=== PATIENT | female | born 1980 | race Caucasian/White ===

== ENCOUNTER 2023-03-09 21:53 | Outpatient (REF) | payer OTHER, BC, SELFPAY ==
[2023-03-14 11:08] LABS: Age Gdln ACOG Testing Note (.); HPV Aptima Negative (Negative); IGP, Aptima HPV, rfx 16/18,45 Note (.)
== END 2023-03-09 21:54 | disposition home or self-care (01) ==
LOC: LAB 21:53
PROVIDERS: PCP Obstetrics & Gynecology; Visit Provider Obstetrics & Gynecology
DX: Z12.4 Encounter for screening for malignant neoplasm of cervix (principal); Z11.51 Encounter for screening for human papillomavirus (HPV)
CPT/HCPCS: 87624; G0145

== ENCOUNTER 2023-03-11 11:08 | Outpatient (OUT) | payer OTHER, BC, SELFPAY ==
--- NOTE | 2023-03-11 11:39 | MM_ITS ---
Patient: KAMERON ANDRADE Exam Date: 03/11/2023 : 1980 Gender:F Ordering : DR Scotty Hidalgo . Admission #: [id number] Family : Order #: [id number] CLICK HERE TO VIEW EXAM RADIOLOGY REPORT PROCEDURE: MM TOMOSYNTHESIS SCREENING BI COMPARISON: MG MAMM NICKIE DIAG W CAD, 11/16/2018. MG MAMM NICKIE DIAG W CAD, 11/20/2019. INDICATIONS: Well woman exam - screening mammogram Z01.419 Calculator Name NCI Breast Cancer Risk Assessment Tool 5 Year Breast Cancer Risk 0.50% Lifetime Breast Cancer Risk 9.00% Personal Breast Cancer No Personal Ovarian Cancer No Treatments None Family Cancers None LOCATION: [facility] BREAST COMPOSITION: Extremely dense, which lowers the sensitivity of mammography. FINDINGS: DIAGNOSTIC CATEGORY 2--BENIGN FINDING. NO CHANGE FROM COMPARISON. Scattered benign-appearing nodules are present. Scattered benign-appearing calcifications are present. Scattered benign-appearing lymph nodes are present. RIGHT BREAST: No significant suspicious finding. LEFT BREAST: No significant suspicious finding. RECOMMENDATIONS: ROUTINE MAMMOGRAM AND CLINICAL EVALUATION IN 12 MONTHS. PLEASE NOTE: A NORMAL MAMMOGRAM DOES NOT EXCLUDE THE POSSIBILITY OF BREAST CANCER. A CLINICALLY SUSPICIOUS PALPABLE LUMP SHOULD BE BIOPSIED. Dictated by: Eric Dinero MD on 03/18/2023 at 07:18 Approved by: Eric Dinero MD on 03/18/2023 at 07:19
[2023-03-11 12:32] LABS: Estimated Average Glucose 97 mg/dL
[2023-03-11 13:11] LABS: Free T4 0.92 ng/dL (0.76-1.46)
[2023-03-11 13:32] LABS: Free T3 2.34 pg/mL (2.18-3.98); Glucose 93 mg/dL (74-106); Thyroid Stimulating Hormone 0.996 uIU/mL (0.358-3.740)
[2023-03-12 04:07] LABS: Estradiol 71.3 pg/mL (.); Sex Horm Binding Glob, Serum 84.1 nmol/L (24.6-122.0); Thyroid Peroxidase (TPO) Ab <9 IU/mL (0-34)
[2023-03-12 11:08] LABS: C-Peptide, Serum 1.5 ng/mL (1.1-4.4); Insulin 4.1 uIU/mL (2.6-24.9)
[2023-03-14 16:09] LABS: Thyroglobulin Antibody <1.0 IU/mL (0.0-0.9)
[2023-03-14 17:10] LABS: Estrone, Serum 35 pg/mL (27-231)
[2023-03-14 18:07] LABS: Reverse T3, Serum 12.4 ng/dL (9.2-24.1)
[2023-03-16 00:07] LABS: Free Testosterone(Direct) 0.3 pg/mL (0.0-4.2); Testosterone 10 ng/dL (8-60)
[2023-03-16 11:28] LABS: Serotonin, Serum 9 ng/mL (31-207)
[2023-03-18 21:07] LABS: Thyroglobulin (TG-RIA) 5.7 ng/mL (.)
[2023-04-07 09:09] LABS: Cortisol, Free Dialysis, LCMS 0.756 ug/dL (.)
== END 2023-03-11 11:09 | disposition home or self-care (01) ==
PROVIDERS: PCP Obstetrics & Gynecology; Visit Provider Obstetrics & Gynecology
DX: Z12.31 Encounter for screening mammogram for malignant neoplasm of breast (principal); Z12.4 Encounter for screening for malignant neoplasm of cervix; E34.9 Endocrine disorder, unspecified
CPT/HCPCS: 36415; 77063; 77067; 82306; 82530; 82627; 82670; 82679; 82728; 82947; 83036; 83525; 84144; 84260; 84270; 84402; 84403; 84432; 84436; 84439; 84443; 84481; 84482; 84681; 86376; 86800

== ENCOUNTER 2023-08-13 16:21 | Emergency (ER) | payer OTHER, BC, SELFPAY ==
[2023-08-13 16:24] VITALS: BP 149/95; PULSE 97; RESP 18; TEMP 36.7; O2SAT 100; BMI 29.2
--- NOTE | 2023-08-13 16:36 | NUTR.NU ---
Pt reprts chronic low back pain but this pain became severe on Tue. Pt trying to control pain with home meds but this not helping. Ambulation is slow ad steady, no bruising or redness observed. Pt has a OTC med patch over site of pain. Pt denies injury or blood in urine.
--- NOTE | 2023-08-13 16:39 | CT_ITS ---
The [address] [address] Patient Name: KAMERON ANDRADE MRN: [id number] date: 1980 Sex: F Assigned Patient Location: ER Current Patient Location: ER Accession/Order Number: [id number] Exam Date: 08/13/2023 17:30 Report Date: 08/13/2023 18:09 At the request of: DUNCAN LEIVA Procedure: CT abdomen pelvis wo con EXAM: CT abdomen pelvis wo con HISTORY: Low back pain COMPARISON: None. TECHNIQUE: Axial CT imaging was performed through the abdomen and pelvis without intravenous contrast. Multiplanar reformats were performed. Dose reduction techniques were achieved by using automated exposure control and/or adjustment of mA and/or kV according to patient size and/or use of iterative reconstruction technique. FINDINGS: Lung bases: Lung bases are clear. No pleural effusion. GI upper: Unremarkable. Liver: Normal size and contour. Gallbladder: No significant abnormality. No cholelithiasis. Biliary system: No intra or extrahepatic biliary ductal dilatation. Spleen: Normal size. Pancreas: Unremarkable. Adrenal glands: Normal adrenal glands. Kidneys/ureters: Normal contours. No hydronephrosis. No nephrolithiasis or ureterolithiasis. Vessels: No aneurysm. Lymph Nodes: No lymphadenopathy. Small bowel: No wall thickening or dilatation. Colon: No wall thickening or dilatation. Moderate volume stool burden Appendix: No findings of appendicitis. Peritoneal cavity: No free fluid or pneumoperitoneum. Lower : Unremarkable. Bones: No acute bony abnormality. Soft tissues: No acute finding. Additional findings: None. CT/CT abdomen pelvis wo con IMPRESSION: Unremarkable noncontrast CT of the abdomen and pelvis. No acute abnormality. Constipation. Electronically authenticated by: MARCELO MENDIOLA Date: 08/13/2023 18:09
--- NOTE | 2023-08-13 16:40 | ED_ITS ---
HPI - Back Pain/Injury General Chief Complaint: Back Pain/Injury Stated Complaint: PAIN Time Seen by Provider: 08/13/23 16:24 Source: patient Mode of arrival: walk-in History of Present Illness HPI Narrative: Patient is a 42-year-old female who presents to the emergency department with her for evaluation of low back pain increasing over the last several days. She has a history of fibromyalgia and chronic low back pain but her h usband is concerned that this pain is different because it is more severe. She has an [id number] pain patch across her lumbar spine. She does not tolerate even light touch of the lumbar spine without guarding. She is able to ambulate. She denies any pain radiation to the lower extremities or peripheral paresthesias. No urinary symptoms. She has no fevers, chills, nausea, vomiting. She has had a previous hysterectomy. expresses concern that she has scar tissue from a hysterectomy and previous endometriosis. Pain is significantly worse with movement. She took NSAIDs and tizanidine prior to arrival without improvement. Related Data Home Medications Medication Instructions Recorded Confirmed cholecalciferol (vitamin D3) 10 10 mcg PO DAILY 08/13/23 08/13/23 mcg (400 unit) tablet (Vitamin D3) duloxetine 60 mg capsule,delayed 60 mg PO BID 08/13/23 08/13/23 release hydroxyzine HCl 25 mg tablet 25 mg PO DAILY 08/13/23 08/13/23 loratadine-pseudoephedrine ER 10 1 tab PO DAILY 08/13/23 08/13/23 mg-240 mg tablet,extended [id number] (Loratadine-D) metformin 500 mg tablet,extended 500 mg PO DAILY 08/13/23 08/13/23 release 24 hr methocarbamol 500 mg tablet 500 mg PO DAILY 08/13/23 08/13/23 nortriptyline 75 mg capsule 75 mg PO DAILY 08/13/23 08/13/23 tizanidine 4 mg tablet 4 mg PO DAILY 08/13/23 08/13/23 Previous Rx's Medication Instructions Recorded ketorolac 10 mg tablet 10 mg PO TID PRN pain #10 tabs 08/13/23 magnesium citrate 296 ml PO DAILY #296 mL 08/13/23 orphenadrine citrate 100 mg 100 mg PO BID PRN muscle pain #14 08/13/23 tablet,extended release tabs Allergies Allergy/AdvReac Type Severity Reaction Status Date / Time latex Allergy Severe Verified 08/13/23 16:28 Review of Systems ROS Constitutional Denies: fever or chills Ears, nose, mouth, and throat Denies: throat pain Cardiovascular Denies: chest pain Respiratory Denies: shortness of breath Gastrointestinal Denies: abdominal pain, nausea, vomiting or diarrhea Genitourinary Denies: painful urination Musculoskeletal Reports: back pain; Denies: neck pain, extremity pain or extremity swelling Integumentary/Breast Denies: rash PFSH PFS Medical History (Updated 08/13/23 @ 18:16 by RM Boss) Back pain ?M54.9 - Dorsalgia, unspecified (ICD-10) Endometriosis ?N80.9 - Endometriosis, unspecified (ICD-10) Fibromyalgia ?M79.7 - Fibromyalgia (ICD-10) Surgical History (Updated 08/13/23 @ 16:42 by Ninfa Davidson) H/O: hysterectomy ?Z90.710 - Acquired absence of both cervix and uterus (ICD-10) Exam Narrative Exam Narrative: Gen.: Awake, alert, in no distress, tearful Head: Normocephalic, atraumatic ENT: Moist mucous membranes Respiratory: No respiratory distress, lungs clear bilaterally Cardio: Regular rate and rhythm Gastrointestinal: Abdomen is soft, nondistended and nontender to palpation Back: Patient does not allow any touch of the lumbar spine, nontender to palpation in the C-spine and T-spine. No obvious deformity noted. No flank tenderness. [id number] pain patch noted across the lumbar spine. Extremities: Moves extremities equally, normal dorsiflexion and plantarflexion of the lower extremities with no decrease in sensation to the medial thighs. Normal hip flexion bilaterally. Able to ambulate. Psych: Tearful Neuro: No focal neuro deficit Skin: Warm, dry, intact Constitutional Vital Signs, click to edit/add: Last Vital Signs Temp 98.1 F 08/13/23 16:24 Pulse 77 08/13/23 17:40 Resp 18 08/13/23 16:24 BP 149/95 H 08/13/23 16:24 Pulse Ox 100 08/13/23 17:40 O2 Del Method Room Air 08/13/23 16:35 Course Vital Signs Vital signs: Vital Signs Temperature 98.1 F 08/13/23 16:24 Pulse Rate 97 H 08/13/23 16:24 Respiratory Rate 18 08/13/23 16:24 Blood Pressure 149/95 H 08/13/23 16:24 Pulse Oximetry 100 08/13/23 16:24 Oxygen Delivery Method Room Air 08/13/23 16:24 Temperature 98.1 F 08/13/23 16:24 Pulse Rate 77 08/13/23 17:40 Respiratory Rate 18 08/13/23 16:24 Blood Pressure 149/95 H 08/13/23 16:24 Pulse Oximetry 100 08/13/23 17:40 Oxygen Delivery Method Room Air 08/13/23 16:35 MDM - Back Pain/Injury MDM Narrative Medical decision making narrative: Patient was medicated with IV morphine, Norflex, Toradol, Zofran. She has an exam that is unremarkable with no radicular symptoms or focal neuro deficits. She has no complaints of abdominal pain. Lab studies, urine specimen are unremarkable. CT of the abdomen and pelvis was performed showing no evidence of acute abnormality although the patient is moderately constipated. She will be treated with Norflex, Toradol, magnesium citrate for home. Patient was reevaluated by attending physician prior to discharge. Follow-up with PCP and return to the ER if symptoms change or worsen. Medical Records Attestation: I reviewed the patient's medical records. Lab Data Attestation: I reviewed the patient's lab results. Labs: Lab Results 08/13/23 08/13/23 Range/Units 16:46 16:48 WBC 8.8 (4.0-11.0) 10^3/uL RBC 4.44 (4.20-5.40) 10^6/uL Hgb 13.0 (12.0-16.0) g/dL Hct 41.8 (36.0-48.0) % MCV 94.1 (81.0-99.0) fL MCH 29.3 (26.7-34.0) pg MCHC 31.1 (29.9-35.2) g/dL RDW 13.2 (11.0-15.0) % Plt Count 290 (150-450) 10^3/uL MPV 8.5 L (9.5-13.5) fL Neut % (Auto) 70.1 (43.0-75.0) % Lymph % (Auto) 18.4 L (20.5-60.0) % [place] % (Auto) 8.2 (1.7-12.0) % Eos % (Auto) 1.5 (0.9-7.0) % Baso % (Auto) 0.8 (0.2-2.0) % Neut # (Auto) 6.2 (1.4-6.5) 10^3/uL Lymph # (Auto) 1.6 (1.2-3.8) 10^3/uL [place] # (Auto) 0.7 (0.3-0.8) 10^3/uL Eos # (Auto) 0.1 (0.0-0.7) 10^3/uL Baso # (Auto) 0.1 (0.0-0.1) 10^3/uL Abs Immat Gran (auto) 0.09 H (0.00-0.03) 10^3/uL Imm/Tot Granulo (auto) 1.0 H (0.0-0.5) % Sodium 143 (136-145) mmol/L Potassium 3.8 (3.5-5.1) mmol/L Chloride 103 (98-107) mmol/L Carbon Dioxide 31.6 (21.0-32.0) mmol/L Anion Gap 12.2 BUN 17.0 (7.0-18.0) mg/dL Creatinine 0.99 (0.55-1.02) mg/dL Est GFR ( Amer) >60 (>=60) Est GFR (Non-Af Amer) >60 (>=60) BUN/Creatinine Ratio 17.2 Glucose 91 (74-106) mg/dL Calcium 8.6 (8.5-10.1) mg/dL Total Bilirubin 0.4 (0.2-1.0) mg/dL AST 18 (15-37) U/L ALT 40 (14-59) U/L Alkaline Phosphatase 66 (46-116) U/L Total Protein 7.0 (6.4-8.2) g/dL Albumin 4.1 (3.4-5.0) g/dL Globulin 2.9 g/dL Albumin/Globulin Ratio 1.4 Urine Color Yellow (YELLOW) Urine Clarity Clear (CLEAR) Urine pH 6.5 (5.0-9.0) Ur Specific [place] 1.025 (1.005-1.025) Urine Protein Negative (NEG/TRACE) mg/dL Urine Glucose (UA) Negative (NEGATIVE) mg/dL Urine Ketones Trace A (NEGATIVE) mg/dL Urine Occult Blood Negative (NEGATIVE) Urine Nitrite Negative (NEGATIVE) Urine Bilirubin Negative (NEGATIVE) Urine Urobilinogen 0.2 (0.2-1.0) EU/dL Ur Leukocyte Esterase Negative (NEGATIVE) Imaging Data CT scan - abdomen: Attestation: I have reviewed the pertinent imaging results. Radiologist's impression: Procedure: CT abdomen pelvis wo con EXAM: CT abdomen pelvis wo con HISTORY: Low back pain COMPARISON: None. TECHNIQUE: Axial CT imaging was performed through the abdomen and pelvis without intravenous contrast. Multiplanar reformats were performed. Dose reduction techniques were achieved by using automated exposure control and/or adjustment of mA and/or kV according to patient size and/or use of iterative reconstruction technique. FINDINGS: Lung bases: Lung bases are clear. No pleural effusion. GI upper: Unremarkable. Liver: Normal size and contour. Gallbladder: No significant abnormality. No cholelithiasis. Biliary system: No intra or extrahepatic biliary ductal dilatation. Spleen: Normal size. Pancreas: Unremarkable. Adrenal glands: Normal adrenal glands. Kidneys/ureters: Normal contours. No hydronephrosis. No nephrolithiasis or ureterolithiasis. Vessels: No aneurysm. Lymph Nodes: No lymphadenopathy. Small bowel: No wall thickening or dilatation. Colon: No wall thickening or dilatation. Moderate volume stool burden Appendix: No findings of appendicitis. Peritoneal cavity: No free fluid or pneumoperitoneum. Lower : Unremarkable. Bones: No acute bony abnormality. Soft tissues: No acute finding. Additional findings: None. IMPRESSION: Unremarkable noncontrast CT of the abdomen and pelvis. No acute abnormality. Constipation. Electronically authenticated by: MARCELO MENDIOLA Date: 08/13/2023 18:09 Discharge Plan Discharge Chief Complaint: Back Pain/Injury Clinical Impression: Low back pain, Constipation Patient Disposition: Home, Self-Care Time of Disposition Decision: 18:15 Condition: Good Prescriptions / Home Meds: New ketorolac 10 mg tablet 10 mg PO TID PRN (Reason: pain) Qty: 10 0RF orphenadrine citrate 100 mg tablet extended release 100 mg PO BID PRN (Reason: muscle pain) Qty: 14 0RF magnesium citrate Solution 296 ml PO DAILY Qty: 296 0RF Rx Instructions: Drink half the bottle with 12 oz of water, wait 30 min and drink the other half of the bottle with 12 oz of water No Action cholecalciferol (vitamin D3) [Vitamin D3] 10 mcg (400 unit) tablet 10 mcg PO DAILY duloxetine 60 mg capsule,delayed release(DR/EC) 60 mg PO BID hydroxyzine HCl 25 mg tablet 25 mg PO DAILY Loratadine-D 10-240 mg tablet extended release 24 hr 1 tab PO DAILY metformin 500 mg tablet extended release 24 hr 500 mg PO DAILY methocarbamol 500 mg tablet 500 mg PO DAILY nortriptyline 75 mg capsule 75 mg PO DAILY tizanidine 4 mg tablet 4 mg PO DAILY Instructions: Constipation (ED), Acute Low Back Pain (ED), Musculoskeletal Pain (ED) Stand Alone Forms: Portal Instructions Referrals: Physician,Non-Staff, MD [Primary Care Provider] - 1 week
[2023-08-13 16:55] LABS: Bilirubin Urine NEGATIVE (NEGATIVE); Blood Urine NEGATIVE (NEGATIVE); Clarity Urine CLEAR (CLEAR); Color Urine YELLOW (YELLOW); Glucose Urine UA NEGATIVE (NEGATIVE); Ketones Urine TRACE mg/dL (NEGATIVE); Leukocyte Esterase Urine NEGATIVE (NEGATIVE); Nitrite Urine NEGATIVE (NEGATIVE); Protein Urine NEGATIVE (NEG/TRACE); Specific Gravity Urine 1.025 (1.005-1.025); Urobilinogen Urine 0.2 EU/dL (0.2-1.0); pH Urine 6.5 (5.0-9.0)
[2023-08-13 16:56] LABS: Basophils Absolute Auto 0.1 10^3/uL (0.0-0.1); Basophils Percent Auto 0.8 % (0.2-2.0); Eosinophils Absolute Auto 0.1 10^3/uL (0.0-0.7); Eosinophils Percent Auto 1.5 % (0.9-7.0); Hematocrit 41.8 % (36.0-48.0); Immature Granulocytes Abs Auto 0.09 10^3/uL (0.00-0.03); Lymphocytes Absolute Auto 1.6 10^3/uL (1.2-3.8); Lymphocytes Percent Auto 18.4 % (20.5-60.0); Mean Corpuscular HGB Conc 31.1 g/dL (29.9-35.2); Mean Corpuscular Hemoglobin 29.3 pg (26.7-34.0); Mean Corpuscular Volume 94.1 fL (81.0-99.0); Mean Platelet Volume 8.5 fL (9.5-13.5); Monocytes Absolute Auto 0.7 10^3/uL (0.3-0.8); Monocytes Percent Auto 8.2 % (1.7-12.0); Neutrophils Absolute Auto 6.2 10^3/uL (1.4-6.5); Neutrophils Percent Auto 70.1 % (43.0-75.0); Platelet Count 290 10^3/uL (150-450); Red Blood Count 4.44 10^6/uL (4.20-5.40); Red Cell Distribution Width 13.2 % (11.0-15.0); White Blood Count 8.8 10^3/uL (4.0-11.0)
[2023-08-13 16:56] LABS: Urine Microscopic Indicated NO
[2023-08-13] MEDS: MORPHINE SULFATE 4 MG/ML VIAL IV (16:57)
[2023-08-13] MEDS: ONDANSETRON PF 4 MG/2 ML VIAL IV (16:57)
[2023-08-13] MEDS: KETOROLAC TROMETHAMINE 30 MG/ML VIAL IVP (16:58)
[2023-08-13] MEDS: ORPHENADRINE 60 MG/ 2 ML VIAL IV (16:58)
[2023-08-13 17:09] LABS: Alanine Aminotransferase 40 U/L (14-59); Albumin Globulin Ratio 1.4; Albumin Level 4.1 g/dL (3.4-5.0); Alkaline Phosphatase 66 U/L (46-116); Anion Gap 12.2; Aspartate Amino Transferase 18 U/L (15-37); BUN Creatinine Ratio 17.2; Bilirubin Total 0.4 mg/dL (0.2-1.0); Calcium 8.6 mg/dL (8.5-10.1); Carbon Dioxide 31.6 mmol/L (21.0-32.0); Chloride 103 mmol/L (98-107); Estimated GFR (African America >60 (>=60); Estimated GFR (Non-African Ame >60 (>=60); Globulin 2.9 g/dL; Glucose 91 mg/dL (74-106); Potassium 3.8 mmol/L (3.5-5.1); Sodium 143 mmol/L (136-145)
[2023-08-13 17:40] VITALS: PULSE 77; O2SAT 100
[2023-08-13 18:36] VITALS: PULSE 76; RESP 16; O2SAT 100
== END 2023-08-13 18:39 | disposition home or self-care (01) ==
PROVIDERS: Physician Assistant; Emergency Provider Emergency Medicine Emergency Medical Services
DX: K59.00 Constipation, unspecified (principal); M54.50 Low back pain, unspecified; Z90.710 Acquired absence of both cervix and uterus; Z79.899 Other long term (current) drug therapy; Z79.84 Long term (current) use of oral hypoglycemic drugs; M79.7 Fibromyalgia
CPT/HCPCS: 36415; 74176; 80053; 81003; 85025; 96374; 96375; 99285

== ENCOUNTER 2024-03-12 08:04 | Outpatient (OUT) | payer OTHER, BC, SELFPAY ==
--- OUTSIDE RECORDS SUMMARY | 2024-03-12 08:26 | XMS_ITS ---
Patient Summarization (C-CDA 2.1 CCD) Created on: March 12, 2024 KAMERON ANDRADE : 1980 Sex: Undifferentiated Author Organization Sample organization Care Team Providers Care Pelletising Extruder Operator Name Role Phone DUKE, DR HIRSCH Admitting Unavailable DUKE, DR HIRSCH Attending Unavailable MISC, DR SMART Primary Care Unavailable LINN, DR SCOTTIE Eldridge Consulting Unavailable DUKE, DR HIRSCH Consulting Unavailable DUKE, DR HIRSCH Admitting Unavailable DUKE, DR HIRSCH Attending Unavailable MISC, DR SMART Primary Care Unavailable DUKE, DR HIRSCH Consulting Unavailable ZIEBER, DR GISELE aB Consulting Unavailable DUKE, DR HIRSCH Admitting Unavailable DUKE, DR HIRSCH Attending Unavailable MISC, DR SMART Primary Care Unavailable DUKE, DR HIRSCH Consulting Unavailable Schlachter ADVERTISING ASSISTANT-BICYCLE INSPECTOR, Emir Primary Care Provide r BILLY AUGUSTE Attending Unavailable SCHLACHTER, EMIR Referring Unavailable SCHLACHTER, EMIR Primary Care Unavailable BILLY AUGUSTE Attending Unavailable SCHLACHTER, EMIR Referring Unavailable SCHLACHTER, EMIR Primary Care Unavailable BILLY AUGUSTE Attending Unavailable SCHLACHTER, EMIR Referring Unavailable SCHLACHTER, EMIR Primary Care Unavailable SCHLACHTER, EMIR Attending Unavailable SCHLACHTER, EMIR Referring Unavailable SCHLACHTER, EMIR Primary Care Unavailable SCHLACHTER, EMIR Attending Unavailable SCHLACHTER, EMIR Referring Unavailable SCHLACHTER, EMIR Primary Care Unavailable SCHLACHTER, EMIR Attending Unavailable SCHLACHTER, EMIR Referring Unavailable SCHLACHTER, EMIR Primary Care Unavailable Allergies Allergy Classification Reported Allergen(s) Allergy Type Date of Onset Reaction(s) Facility (1 source) Acetaminophen / dichloralphenazone / isometheptene Drug Allergy 02-20-20 13 [facility] (1 source) Cefaclor Drug Allergy 02-20-20 13 [facility] (1 source) Cetirizine Drug Allergy 02-20-20 13 [facility] (1 source) Ciprofloxacin Drug Allergy [facility] (1 source) Clarithromycin Drug Allergy 02-20-20 13 [facility] (3 sources) Latex; Translations: [LATEX] Drug allergy (disorder) 02-20-20 13 [facility] (1 source) Loratadine Drug Allergy 02-20-20 13 [facility] (6 sources) Citalopram; Translations: [CITALOPRAM] Drug Allergy 06-22-20 22 Rash [facility] Work Phone: (4 sources) Latex Propensity to adverse reactions to drug 07-04-20 17 Hives [facility] Encounters Encounter Date Encounter Type Care Provider Facility Start: 03-02-2024 End: 03-02-2024 ambulatory [facility] Start: 02-09-2024 End: 02-09-2024 ambulatory [facility] Start: 12-17-2023 End: 12-17-2023 ambulatory [facility] Work Phone: Start: 12-17-2023 End: 12-17-2023 Patient encounter procedure [facility] Work Phone: Start: 12-16-2023 End: 12-16-2023 Office outpatient visit 15 minutes Esmer ABDALLA Work Phone: [facility] Comment on above: Fibromyalgia Start: 11-17-2023 End: 11-17-2023 ambulatory [facility] Start: 10-28-2023 End: 10-28-2023 Patient encounter status Emir Duggan ADVERTISING ASSISTANT-BICYCLE INSPECTOR Work Phone: [facility] Work Phone: Start: 10-28-2023 End: 10-28-2023 Periodic preventive med est patient 40-64yrs Emir Avilaer ADVERTISING ASSISTANT-BICYCLE INSPECTOR Work Phone: [facility] Comment on above: Wellness examination (Primary Dx); Fibromyalgia; Degenerative disc disease, lumbar; Anxiety Start: 10-28-2023 End: 10-28-2023 ambulatory [facility] Start: 10-28-2023 Encounter for genera l adult medical examination without abnormal findings [facility] Start: 10-12-2023 End: 10-12-2023 ambulatory BILLY EDMONDSON [facility] Start: 10-03-2023 End: 10-03-2023 Office outpatient visit [facility] ADVERTISING ASSISTANT-BICYCLE INSPECTOR Work Phone: [facility] Comment on above: Acute non-recurrent maxillary sinusitis (Primary Dx) Start: 10-03-2023 End: 10-03-2023 ambulatory [facility] Start: 09-15-2023 Orders Only Scottie otto MD Work Phone: [facility] Start: 01-09-2022 End: 01-10-[address] TORREY WALL Facility:[facility] Start: 12-05-2021 End: 12-06-[address] TORREY WALL Facility:[facility] Start: 11-30-2021 End: 11-30-[address] TORREY WALL Facility:[facility] Immunizations Immunization Date Immunization Notes Care Provider [facility] 06-30-2022 Influenza, injectabl e, Madin Armour Canine Kidney, preservative free, quadrivalent Scottie Plata MD Work Phone: [facility] 06-30-2022 influenza virus vaccine, unspecified formulation Scottie Plata MD Work Phone: [facility] 09-03-2021 influenza, injectabl e, quadrivalent, preservative free Scottie Plata MD Work Phone: [facility] 01-05-2021 COVID-19, mRNA, LNP- S, PF, 100mcg/0.5mL Dose [facility] 06-21-2020 Influenza, injectabl e, Madin Armour Canine Kidney, preservative free, quadrivalent Scottie Plata MD [facility] 04-25-2020 measles, mumps and rubella virus vaccine Scottie Plata MD [facility] 04-11-2011 tetanus toxoid, redu ivonne diphtheria toxoid, and acellular pertussis vaccine, adsorbed Scottie Plata MD Work Phone: [facility] Medications Current Medications Medication Drug Class(es) Dates Sig (Normalized) Sig (Original) [id number] 200 actuat albuterol 0.09 mg/actuat metered dose inhaler (4 sources) beta2-Adrenergic Agonist Start: 02-22-2022 take 2 puff(s) by inhalation every six hours as needed for wheezing albuterol (PROVENTIL HFA;VENTOLIN HFA) 90 mcg/actuation inhaler Indications: Exercise-induced asthma Inhale 2 puffs every 6 (six) hours as needed for wheezing. 18 g 11 02/22/2022 Active amoxicillin 875 mg / clavulanate 125 mg oral tablet (1 source) Penicillin-class Antibacterial Start: 12-17-2023 take 1 tablet by mouth twice daily Amoxicillin-Pot Clavulanate Active 1 TAB PO Twice daily December 17, 2023 12:00am Calcium Carbonate / vitamin D3 (4 sources) calcium carbonate/vitami n D3 (CALCIUM 600 + D,3, ORAL) Take by mouth. 0 Active cefdinir 300 mg oral capsule (1 source) Cephalosporin Antibacterial Start: 10-03-2023 End: 10-13-2023 take 1 capsule by mouth in the morning, then take 1 capsule by mouth at bedtime cefDINIR (OMNICEF) 300 mg capsule Take 1 capsule (300 mg total) by mouth in the morning and 1 capsule (300 mg total) before bedtime. Do all this for 10 days. 20 capsule 0 10/03/2023 10/13/2023 Active cholecalciferol 0.01 mg oral tablet (4 sources) Vitamin D Start: 08-04-2023 take 1 tablet by mouth in the morning cholecalciferol, vitamin D3, 400 units tablet Indications: Fatigue, unspecified type Take 1 tablet (400 Units total) by mouth in the morning. 30 each 3 08/04/2023 Active DULoxetine 60 mg delayed release oral capsule (4 sources) Serotonin and Norepinephrine Reuptake Inhibitor Start: 01-21-2023 take 2 capsules by mouth in the morning DULoxetine (CYMBALTA) 60 mg capsule Indications: Generalized anxiety disorder Take 2 capsules (120 mg total) by mouth in the morning. 180 capsule 3 01/21/2023 Active hydrOXYzine hydrochloride 25 mg oral tablet (3 sources) Antihistamine Start: 11-17-2023 take 1 tablet by mouth three times daily as needed for anxiety hydrOXYzine (ATARAX) 25 mg tablet Indications: Generalized anxiety disorder Take 1 tablet (25 mg total) by mouth 3 (three) times a day as needed for anxiety. 90 tablet 3 11/17/2023 Active Start: 04-01-2023 End: 10-03-2023 take 1 tablet by mouth three times daily as needed for anxiety hydrOXYzine (ATARAX) 25 mg tablet Indications: Generalized anxiety disorder Take 1 tablet (25 mg total) by mouth 3 (three) times a day as needed for anxiety. 90 tablet 3 04/01/2023 10/03/2023 Discontinued 24 hr loratadine 10 mg / pseudoephedrine sulfate 240 mg extended release oral tablet (4 sources) alpha-Adrenergic Agonist Start: 05-10-2023 take 1 tablet by mouth every twenty-four hours in the morning loratadine-pseudoephedrine (LORATADINE-D) 10-240 mg per 24 hr tablet Indications: Seasonal allergies Take 1 tablet by mouth in the morning. 30 tablet 5 05/10/2023 Active meloxicam 15 mg oral tablet (5 sources) Nonsteroidal Anti-inflammatory Drug Start: 12-16-2023 take 1 tablet by mouth once daily meloxicam (MOBIC) 15 mg tablet Indications: Fibromyalgia Take one tablet by mouth once a day. 90 tablet 1 12/16/2023 Active Start: 03-18-2023 End: 12-16-2023 take 1 tablet by mouth once daily meloxicam (MOBIC) 7.5 mg tablet Indications: Fibromyalgia Take one tablet by mouth once a day. 90 tablet 0 03/18/2023 12/16/2023 Discontinued (Reorder) methocarbamol 750 mg oral tablet (5 sources) Muscle Relaxant Start: 12-16-2023 take 1 tablet by mouth in the evening methocarbamoL (ROBAXIN) 750 mg tablet Indications: Fibromyalgia Take one tablet by mouth at 8:00 pm 90 tablet 1 12/16/2023 Active Start: 06-17-2023 End: 12-16-2023 take 1 tablet by mouth once daily at bedtime methocarbamoL (ROBAXIN) 500 mg tablet Indications: Fibromyalgia Take 1 tablet (500 mg total) by mouth once daily at bedtime. 30 tablet 5 06/17/2023 12/16/2023 Discontinued (Reorder) methylPREDNISolone 4 mg oral tablet (1 source) Corticosteroid Start: 12-17-2023 take 1 tablet by mouth once Methylprednisolone (Medrol (Jakob)) 4 mg tablets,dose pack Active 0 PO per package directions December 17, 2023 12:00am PO PER PKG DIR for 6 days multivitamin-minerals- lutein (CENTRUM SILVER) tablet (4 sources) take 1 tablet by mouth in the morning multivitamin-minerals -lutein (CENTRUM SILVER) tablet Take 1 tablet by mouth in the morning. 0 Active nortriptyline 50 mg oral capsule (4 sources) Tricyclic Antidepressant Start: 09-05-2023 take 2 capsules by mouth once daily nortriptyline (PAMELOR) 50 mg capsule Indications: Generalized anxiety disorder , Insomnia due to medical condition Take 2 capsules (100 mg total) by mouth nightly. 180 capsule 1 09/05/2023 Active vitamin e 600 unt oral capsule (4 sources) take 1 capsule by mouth in the morning vitamin E 600 UNIT capsule Take 1 capsule (600 Units total) by mouth in the morning. 0 Active Completed/Discontinued Medications Medication Drug Class(es) Dates Sig (Normalized) Sig (Original) Lactobac no.41/Bifidobact no.7 (PROBIOTIC-10 ORAL) (2 sources) End: 10-03-2023 take 1 capsule by mouth in the morning Lactobac no.41/Bifidobact no.7 (PROBIOTIC-10 ORAL) Take 1 capsule by mouth in the morning. 0 10/03/2023 Discontinued take 1 capsule by mo ut in the morning Lactobac no.41/Bifidobact no.7 (PROBIOTI C-10 ORAL) Take 1 capsule by mouth in the morning. 0 Active ondansetron 4 mg oral tablet (2 sources) Serotonin-3 Receptor Antagonist Start: 09-15-2023 End: 10-03-2023 take 1 tablet by mouth every eight hours as needed for nausea and vomiting ondansetron (ZOFRAN) 4 mg tablet Take 1 tablet (4 mg total) by mouth every 8 (eight) hours as needed for nausea or vomiting. 20 tablet 0 09/15/2023 10/03/2023 Discontinued Payers Date Payer Category Payer Unknown [id number] 2020 Unknown [id number] 2020 Medicaid [employer] [employer] [id number] 2020-Present [phone] [place] [id number] 1982 Unknown [id number] 1980 Unknown [id number] 1982 Unknown [id number] 1982 Unknown [id number] 1982 Unknown [id number] 1980 Unknown [id number] 1982 Unknown [id number] 1982 Unknown [id number] 1982 Unknown [id number] 1959 Unknown [id number] 1959 Unknown [id number] Plan of Treatment Date Care Activity Detail Author Start: 03-11-2033 DTaP,Tdap and Td Vaccines (3 - Td or Tdap) DTaP,Tdap and Td Vaccines (3 - Td or Tdap) [facility] Start: 11-16-2024 Tobacco Screening Tobacco Screening [facility] Start: 11-02-2024 End: 11-02-2024 Patient encounter procedure 11/02/2024 8:30 AM EST Office Visit [facility] [address] [place] [phone] Emir Duggan, ADVERTISING ASSISTANT-BICYCLE INSPECTOR [address] [place] [address] [facility] Start: 10-28-2024 Adult BMI Follow Up Plan Adult BMI Follow Up Plan [facility] Start: 10-28-2024 Adult BMI Screening Adult BMI Screen ing [facility] Start: 10-28-2024 Tobacco Screening Tobacco Screening [facility] Start: 10-03-2024 Adult BMI Follow Up Plan Adult BMI Follow Up Plan [facility] Start: 09-05-2024 Tobacco Screening Tobacco Screening [facility] Start: 08-19-2024 Adult BMI Follow Up Plan Adult BMI Follow Up Plan [facility] Start: 08-19-2024 Adult BMI Screening Adult BMI Screen ing [facility] Start: 05-04-2024 End: 05-04-2024 Patient encounter procedure 05/04/2024 8:30 AM EDT Office Visit [facility] [address] [place] [phone] Emir Duggan, ADVERTISING ASSISTANT-BICYCLE INSPECTOR [address] [place] [address] [facility] Start: 03-12-2024 End: 10-27-2024 CBC W Auto Differential panel - Blood CBC auto differential Lab Routine Wellness examination Expected: 03/12/2024, Expires: 10/27/2024 [facility] Phone: Comment on above: Expected: 03/12/2024 , Expires: 10/27/2024 Start: 03-12-2024 End: 10-27-2024 Comprehensive metabolic 2000 panel - Serum or Plasma Comprehensive metabolic panel Lab Routine Wellness examination Expected: 03/12/2024, Expires: 10/27/2024 [facility] Comment on above: Expected: 03/12/2024 , Expires: 10/27/2024 Start: 03-12-2024 End: 10-27-2024 Lipid 1996 panel - Serum or Plasma Lipid profile Lab Routine Wellness examination Expected: 03/12/2024, Expires: 10/27/2024 [facility] Comment on above: Expected: 03/12/2024 , Expires: 10/27/2024 Start: 12-16-2023 End: 12-16-2023 Patient encounter procedure 12/16/2023 9:00 AM EDT Office Visit [facility] [address] [place] [phone] [place] [address] [place] [phone] [facility] Start: 11-08-2023 Depression Screening Depression Scre [facility] Start: 10-28-2023 End: 10-28-2023 Patient encounter procedure 10/28/2023 11:00 AM EST Office [facility] [address] [place] [address] Emir Duggan, ADVERTISING ASSISTANT-BICYCLE INSPECTOR [address], [place] [id number] [facility] Start: 09-27-2023 End: 09-27-2023 Patient encounter procedure 09/27/2023 8:45 AM EST Office Visit [facility] [address] [place] [phone] [place] [address] [place] [address] [address] [place] [phone] [facility] Start: 05-20-2023 COVID-19 Vaccine () COVID-19 Vaccine () [facility] Start: 05-20-2023 Influenza vaccination Influenza Vacc ine [facility] Problems Active Problems Problem Classification Problem Date Documented Date Episodic/Chronic Abdominal pain (4 sources) Pelvic and perineal pain; Translations: [PELVIC AND PERINEAL PAIN] Onset: 12-05-2021 Episodic Anxiety disorders (11 sources) Generalized anxiety disorder; Translations: [Generalized anxiety disorder] Onset: 06-22-2022 Resolved: 04-01-2023 06-22-2022 Chronic Attention-deficit, conduct, and disruptive behavior disorders (4 sources) Attention deficit hyperactivity disorder, predominantly inattentive type; Translations: [Attention-deficit hyperactivity disorder, predominantly inattentive type] Onset: 12-14-2022 12-14-2022 Chronic Attention-deficit, conduct, and disruptive behavior disorders (1 source) Attention-deficit hyperactivity disorder, predominantly inattentive type; Translations: [Attention-deficit hyperactivity disorder, predominantly inattentive type] Onset: 12-14-2022 Chronic Endometriosis (4 sources) Endometriosis (clinical); Translations: [Endometriosis, unspecified] 08-06-2020 Chronic Immunizations and screening for infectious disease (2 sources) Contact with and (suspected) exposure to infections with a predominantly sexual mode of transmission; Translations: [Encounter for screening for human papillomavirus (HPV)] Onset: 12-01-2021 Episodic Other connective tissue disease (6 sources) Fibromyalgia; Translations: [Fibromyalgia] Onset: 10-22-2022 10-22-2022 Episodic Other female genital disorders (1 source) Other specified noninflammatory disorders of vagina; Translations: [OTH SPEC NONINFLAMMATORY D/O VAGINA] Onset: 12-01-2021 Episodic Other screening for suspected conditions (not mental disorders or infectious disease) (4 sources) Encounter for screening for malignant neoplasm of cervix; Translations: [ENC SCREENING MALIG NEOPLASM CERV] Onset: 11-30-2021 Episodic Other skin disorders (1 source) Blister Onset: 03-02-2024 Episodic Otitis media and related conditions (5 sources) Acute left otitis media; Translations: [Otitis media, unspecified, left ear] Onset: 07-04-2017 07-04-2017 Episodic Ovarian cyst (4 sources) Unspecified ovarian cyst, left side; Translations: [UNSPECIFIED OVARIAN CYST LEFT SIDE] Onset: 01-09-2022 Episodic Spondylosis; intervertebral disc disorders; other back problems (6 sources) Degeneration of lumbar intervertebral disc; Translations: [Other intervertebral disc degeneration, lumbar region] Onset: 10-22-2022 10-22-2022 Chronic Superficial injury; contusion (1 source) Blister (nonthermal), unspecified foot, initial encounter; Translations: [Blister (nonthermal), unspecified foot, initial encounter] Onset: 03-02-2024 Episodic Unclassified (1 source) Annual Exam Onset: 10-28-2023 Past or Other Problems Problem Classification Problem Date Documented Da te Episodic/Chronic Mood disorders (4 sources) Mood disorders Onset: 11-08-2022 11-08-2022 Other connective tissue disease (1 source) Fibromyalgia; Translations: [Fibromyalgia] Onset: 10-22-2022 Episodic Other upper respiratory infections (4 sources) Acute maxillary sinusitis; Translations: [Acute maxillary sinusitis, unspecified] Onset: 10-03-2023 10-03-2023 Episodic Unclassified (4 sources) Onset: 08-19-2023 Resolved: 10-28-2023 08-19-2023 Procedures Date Procedure Procedure Detail Performing Clinician Start: 12-17-2023 Quick Strep (POC) Start: 11-08-2022 Adult depression screening assessment Scottie Plata MD Work Phone: Results Test Name Value Interpretation Reference Range Facility No Panel InformationOrdered By: Ludy Mena on 12-17-2023 Quick Strep (POC) [facility] US PELVIS AND TRANSVAGon US PELVIS AND TRANSVAG EXAMINATION: US PELVIS AND TRANSVAG HISTORY: Cyst of left ovary COMPARISON: 12/05/2021 FINDINGS: Transabdominal and transvaginal images The uterus is surgically absent. The right ovary measures 3. 1.7 x 3.6 cm. Scattered subcentimeter areas of anechoic echogenicity, normal follicles. Normal color Doppler flow. Normal resistive index of 0.4. The left ovary measures 4.0 x 3.0 4.4 cm. Decrease in size of a heterogeneous hypoechoic lesion now measuring 2.5 x 2.1 x 2.1 cm, centrally avascular. IMPRESSION: Decrease in size of a now 2.5 cm heterogeneous left ovarian lesion. I favor a complex cyst versus endometrioma. Consider follow-up in 2 months. Electronically authenticated by: SCOTTIE NGUYEN Date: 2022-01-11 17:35 Normal [facility] PAP ACOG PANEL 2: 30 to 65on 12-08-2021 . . Normal [facility] Comment on above: Result Comment: Perf ormed at: WB Performed By: #### [id number] #### [facility] [address] [place] [address] Dr. Ewa Mathews Age Gdln ACOG Testing 30-65 Normal [facility] Comment on above: Performed By: #### [id number] #### [facility] [address] [address] [address] Ewa Mathews DIAGNOSIS: Comment Normal [facility] Comment on above: Result Comment: NEGA TIVE FOR INTRAEPITHELIAL LESION OR MALIGNANCY. PREDOMINANCE OF COCCOBACILLI CONSISTENT WITH SHIFT IN VAGINAL JAH IS PRESENT. Performed at: WB Performed By: #### [id number] #### [facility] [address] [place] [address] Dr. Ewa Mathews HPV Aptima Positive Abnormal Negative [facility] Comment on above: Result Comment: This nucleic acid amplification test detects fourteen high-risk HPV types (16,18,31,33,35,39,45,51,52,56,58,59,66,68) without differentiation. Performed at: =G Performed By: #### [id number] #### [facility] [address] [place] [address] Dr. Ewa Mathews HPV Genotype 16 Negative Normal Negative [facility] Comment on above: Result Comment: Perf ormed at: =G Performed By: #### [id number] #### [facility] [address] [place] [address] Dr. Ewa Mathews HPV Genotype 18,45 Negative Normal Negative [facility] Comment on above: Result Comment: Perf ormed at: =G Performed By: #### [id number] #### [facility] [address] [place] [address] Dr. Ewa Mathews Methodology: Comment Normal [facility] Comment on above: Result Comment: This liquid based ThinPrep(R) pap test was screened with the use of an image guided system. Performed at: WB Performed By: #### [id number] #### [facility] [address] [place] [address] Dr. Ewa Mathews Note: Comment Normal [facility] Comment on above: Result Comment: The Pap smear is a screening test designed to aid in the detection of premalignant and malignant conditions of the uterine cervix. It is not a diagnostic procedure and should not be used as the sole means of detecting cervical cancer. Both false-positive and false-negative reports do occur. . Performed at: WB Performed By: #### [id number] #### [facility] [address] [place] [address] Dr. Ewa Mathews Performed by: Comment Normal [facility] Comment on above: Result Comment: Daniel Vu, [employer] Farm[employer] (ASCP) Performed at: WB Performed By: #### [id number] #### [facility] [address] [place] [address] Dr. Ewa Mathews Specimen adequacy: Comment Normal [facility] Comment on above: Result Comment: Sati sfactory for evaluation. No endocervical cells are present. This is consistent with a history of hysterectomy. Performed at: WB Performed By: #### [id number] #### [facility] [address] [place] [address] Dr. Ewa Mathews HEPATITIS PANEL, ACUTEon HBsAg Screen Negative Normal Negative [facility] Comment on above: Performed By: #### H EPACUT #### [facility] [address] [place] [address] Dr. Ewa Mathews Hep A Ab, IgM Negative Normal Negative [facility] [facility] Comment on above: Performed By: #### H EPACUT #### [facility] [address] [address] [address] Ewa Mathews Hep B Core Ab, IgM Negative Normal Negative [facility] Comment on above: Performed By: #### H EPACUT #### [facility] [id number] Ewa Mathews Hep C Virus Ab <0.1 Normal 0.0-0.9 [facility] Comment on above: Result Comment: Nega tive: < 0.8 Indeterminate: 0.8 - 0.9 Positive: > 0.9 . The CDC recommends that a positive HCV antibody result be followed up with a HCV Nucleic Acid Amplification test ([id number]). Effective January 18, 2022 Hepatitis Panel (4) will be made non-orderable. [facility] offers order code [id number] Acute Hepatitis. Performed By: #### H EPACUT #### [facility] [address] [place] [address] Dr. Ewa Mathews HIV 1 AND 2 WITH REFLEXon HIV Screen 4th Generation wRfx Non-Reactive Normal Non Reactive [facility] Comment on above: Result Comment: HIV Negative HIV-1/HIV-2 antibodies and HIV-1 p24 antigen were NOT detected. There is no laboratory evidence of HIV infection. Performed By: #### H IV12 #### [facility] [address] [address] [address] Ewa Mathews RPR QUANTon 12-06-2021 Rapid Plasma Reagin, Quant Non-Reactive Normal NonRea<1:1 [facility] Comment on above: Performed By: #### R PRQ #### [facility] [address] [place] [address] Dr. Ewa Mathews US PELVIS AND TRANSVAGon US PELVIS AND TRANSVAG EXAMINATION: US PELVIS AND TRANSVAG HISTORY: Pain in pelvis ; chronic COMPARISON: Ultrasound pelvis 11/02/2018 TECHNIQUE: Transabdominal and transvaginal sonographic examination. FINDINGS: UTERUS: Hysterectomy. RIGHT OVARY: Normal size and appearance. Duplex Doppler demonstrates normal waveform and flow; resistive index 0.47. Ovary size: 3.6 x 2.2 x 2.1 cm LEFT OVARY: Contains a large complex cyst versus heterogeneous mass, 4.5 x 4.5 x 4.5 cm, with no appreciable internal blood flow. Blood flow present within ovary on color Doppler. Trace amount free fluid within left adnexa. Ovary size: 6.0 x 5.2 x 5.1 cm CUL-DE-SAC: Unremarkable. No significant free fluid. BLADDER: Unremarkable. OTHER: None. IMPRESSION: 1. Large 4.5 cm complex left ovarian cyst versus hypovascular mass. Follow-up ultrasound evaluation in 6 weeks is needed to document regression versus persistence. Electronically authenticated by: GISELE DUPONT Date: 2021-12-05 16:46 Normal [facility] CHLAMYDIA/GONOCOCCUS DESEAN (SW AB/URINE/PAPon 12-02-2021 Chlamydia trachomatis, DESEAN Negative Normal Negative [facility] Comment on above: Performed By: #### C T/NGNA #### [facility] [address] [place] [address] Dr. Ewa Mathews Neisseria gonorrhoeae, DESEAN Negative Normal Negative [facility] Comment on above: Performed By: #### C T/NGNA #### [facility] [address] [place] [address] Dr. Ewa Mathews VAGINITIS/VAGINOSIS DNA PROB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 medications prior to visit. Follow Up: Cbc, cmp, lipid profile-will call with results Follow up in six months or as needed Keep appointments with rheumatology and psychiatry Patient noted to have elevated BMI and the following intervention(s) were applied: encouragement to exercise. JEAN Davalos 10/28/23 1127 documented in this encounter [facility] 10-03-2023 History of Present illness Narrative Images from the original note were not included. [id number] [facility] [id number] SUBJECTIVE: Patient ID: Kameron Andrade is a 43 y.o. female. Video Visit via Real-time Synchronous Audiovisual Provider Location: [facility] [address] [facility] [id number] Patient Location: Patient's home Video Visit Consent Statement: I discussed risks, benefits, and alternatives of a real-time synchronous audiovisual consultation with the patient (and any accompanying persons) including the risks that the patient's personal health details and medical records will be discussed over real-time, synchronous, interactive video/audio/telecommunication technology, the visit will not be recorded without the express consent of both the provider and the patient, and that there are some limitations compared to [id number] evaluations. The patient consented to the presence of additional virtual and/or in-person participants. We elected to proceed.Video Visit via Real-time Synchronous Audiovisual Provider Location: [facility] [address] [facility] [id number] Patient Location: Patient's home Video Visit Consent Statement: I discussed risks, benefits, and alternatives of a real-time synchronous audiovisual consultation with the patient (and any accompanying persons) including the risks that the patient's personal health details and medical records will be discussed over real-time, synchronous, interactive video/audio/telecommunication technology, the visit will not be recorded without the express consent of both the provider and the patient, and that there are some limitations compared to [id number] evaluations. The patient consented to the presence of additional virtual and/or in-person participants. We elected to proceed. Patient presents to the office by video visit for sinus congestion. Patient's sons are also getting over a URI as well but they had more coughing. Her has same symptoms as her as well. She has been taking OTC medication with no relief. The following portions of the patient's history were reviewed and updated as appropriate: allergies, current medications, past family history, past medical history, past social history, past surgical history and problem list. REVIEW OF SYSTEMS: Review of Systems Constitutional: Negative for fatigue, fever and unexpected weight change. HENT: Positive for congestion, sinus pressure and sinus pain. Negative for ear pain and sore throat. Eyes: Negative for photophobia, pain, discharge and visual disturbance. Respiratory: Negative for cough and shortness of breath. Cardiovascular: Negative for chest pain, palpitations and leg swelling. Gastrointestinal: Negative for abdominal pain, diarrhea, nausea and vomiting. Endocrine: Negative for polydipsia, polyphagia and polyuria. Genitourinary: Negative for difficulty urinating, frequency, hematuria and urgency. Musculoskeletal: Negative for arthralgias, gait problem, joint swelling and neck pain. Skin: Negative for pallor and rash. Neurological: Negative for dizziness, weakness, light-headedness and numbness. Psychiatric/Behavioral: Negative for sleep disturbance. The patient is not nervous/anxious. PHYSICAL EXAMINATION: There were no vitals filed for this visit. Physical Exam ASSESSMENT/PLAN: Diagnoses and all orders for this visit: Acute non-recurrent maxillary sinusitis Other orders - cefDINIR (OMNICEF) 300 mg capsule; Take 1 capsule (300 mg total) by mouth in the morning and 1 capsule (300 mg total) before bedtime. Do all this for 10 days. Follow-up: Cefdinir 300mg bid for ten days Total time taken 20 min Follow up with routine visit or if not improved. Patient noted to have elevated BMI and the following intervention(s) were applied: encouragement to exercise. JEAN Davalos 10/03/23 1305 documented in this encounter [facility] Evaluation note Diagnosis Acute non-recurrent maxillary sinusitis- Primary [facility] Diagnosis Wellness examination- Primary Fibromyalgia Unspecified myalgia and myositis Degenerative disc disease, lumbar Anxiety Anxiety state, unspecified [facility] Diagnosis Fibromyalgia Unspecified myalgia and myositis [facility] Diagnosis Onset Date Resolution Status Sore throat acute Left otitis media noneactive [facility] Work Phone: InstructionsNot on filedocumented in this encounter [facility]* Attachments The following attachments cannot be sent through Care Everywhere. * Sinusitis in adults ([place]) [facility] Attachments The following attachments cannot be sent through Care Everywhere. * Yearly Physical for Adults ([place]) [facility] Summary Purpose Family History No Family History Records FoundNo Family History Records FoundNo Family History Records FoundNo Family History Records FoundNo Family History Records Found Advance Directives No Advanced Directives Records Found Advance Directive Response Recorded Date/ Time Advance Directives No December 16, 024 9:04am Chief Complaint and Reason for Visit Chief Complaint Sore throat Reason for Visit Sore throat Left otitis media Additional Source Comments INFORMATION SOURCE (unrecogn ized section and content) DATE CREATED AUTHOR 03/31/2018 [facility] DATE CREATED AUTHOR AUTHOR'S ORGANIZ ATION [facility]/20[facility] DATE CREATED AUTHOR AUTHOR'S ORGANIZ ATION 01/13/2022 [facility] DATE CREATED AUTHOR AUTHOR'S ORGANIZ ATION 02/12/2024 [facility] DATE CREATED AUTHOR AUTHOR'S ORGANIZ ATION 03/03/2024 [facility] Care Teams (unrecognized sec tion and content) 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 Start Date End Date Emir Duggan APRN-CNP [address] [place] [address] PCP - General Family Medicine 08/06/20 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 Start Date End Date Emir Duggan APRN-CNP [address] [facility] [place] [address] PCP - General Family Medicine 08/06/20 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 Start Date End Date Emir Duggan APRN-CNP [address] [facility] [facility] [place] [address] PCP - General Family Medicine 08/06/20 Team Status: Active Member Role Status Dates MARK ANTHONY Davalos Primary Care Provider Active Team Status: Inactive Member Role Status Dates MARK ANTHONY Chacko Attending Provider Active S tart: December 17, 2023 End: December 17, 2023 MARK ANTHONY Davalos Primary Care Provider Active Start: December 17, 2023 End: December 17, 2023 Reason for Visit (unrecogniz ed section and content) Reason Comments Annual Exam Goals (unrecognized section and content) Goals may be documented in a n alternate section FOR RECORDS PERTAINING TO PATIENTS WHO ARE OR HAVE BEEN ENROLLED IN A CHEMICAL DEPENDENCY/SUBSTANCEABUSE PROGRAM, SOME INFORMATION MAY BE OMITTED. This clinical summary was aggregated from multiple sources. Caution should be exercised in using it in the provision of clinical care. This summary normalizes information from multiple sources, and as a consequence, information in this document may materially change the coding, format and clinical context of patient data. In addition, data may be omitted in some cases. CLINICAL DECISIONS SHOULD BE BASED ON THE PRIMARY CLINICAL RECORDS. [employer] [facility]. provides no warranty or guarantee of the accuracy or completeness of information in this document.
[2024-03-12 09:05] LABS: Estimated Average Glucose 100 mg/dL; Glycohemoglobin A1C 5.1 % (4.5-6.2)
[2024-03-12 10:22] LABS: Free T3 2.62 pg/mL (2.18-3.98); Thyroid Stimulating Hormone 1.519 uIU/mL (0.358-3.740)
[2024-03-12 11:01] LABS: Free T4 0.84 ng/dL (0.76-1.46)
[2024-03-13 08:12] LABS: C-Peptide, Serum 1.7 ng/mL (1.1-4.4); Estradiol 57.8 pg/mL (.); Insulin 3.7 uIU/mL (2.6-24.9)
[2024-03-13 12:09] LABS: Progesterone 1.5 ng/mL (.)
[2024-03-13 15:11] LABS: Thyroglobulin Antibody <1.0 IU/mL (0.0-0.9); Thyroid Peroxidase (TPO) Ab <9 IU/mL (0-34)
[2024-03-14 04:08] LABS: Free Testosterone(Direct) 0.4 pg/mL (0.0-4.2); Testosterone 7 ng/dL (4-50)
[2024-03-14 14:10] LABS: Estrone, Serum 100 pg/mL (.)
[2024-03-15 15:11] LABS: Serotonin, Serum 14 ng/mL (31-207)
== END 2024-03-12 08:05 | disposition home or self-care (01) ==
LOC: LAB 08:06
PROVIDERS: Visit Provider Obstetrics & Gynecology
DX: E34.9 Endocrine disorder, unspecified (principal)
CPT/HCPCS: 36415; 82530; 82627; 82670; 82679; 82728; 83036; 83525; 84144; 84260; 84270; 84402; 84403; 84432; 84436; 84439; 84443; 84481; 84482; 84681; 86376; 86800

== ENCOUNTER 2024-03-28 18:40 | Outpatient (REF) | payer OTHER, BC, SELFPAY ==
[2024-04-01 19:06] LABS: Age Gdln ACOG Testing Note (.); HPV Aptima Negative (Negative); IGP, Aptima HPV, rfx 16/18,45 Note (.)
== END 2024-03-28 18:41 | disposition home or self-care (01) ==
LOC: LAB 18:40
PROVIDERS: Visit Provider Obstetrics & Gynecology
DX: Z01.419 Encounter for gynecological examination (general) (routine) without abnormal findings (principal)
CPT/HCPCS: 87624; 88175

== ENCOUNTER 2025-04-01 22:00 | Outpatient (REF) | payer OTHER, BC, SELFPAY ==
--- OUTSIDE RECORDS SUMMARY | 2025-04-01 22:06 | XMS_ITS | CCD ---
Author Organization [facility] Care Team Providers Care Chain Repairer Name Role Phone ROCKY, DR HIRSCH Admitting Unavailable ROCKY, DR HIRSCH Attending Unavailable MISC, DR SMART Primary Care Unavailable MCKEAN, DR SCOTTIE Eldridge Consulting Unavailable ROCKY, DR HIRSCH Consulting Unavailable ROCKY, DR HIRSCH Admitting Unavailable ROCKY, DR HIRSCH Attending Unavailable MISC, DR SMART Primary Care Unavailable ROCKY, DR HIRSCH Consulting Unavailable ZIEBER, DR GISELE Ba Consulting Unavailable ROCKY, DR HIRSCH Admitting Unavailable ROCKY, DR HIRSCH Attending Unavailable MISC, DR SMART Primary Care Unavailable ROCKY, DR HIRSCH Consulting Unavailable ROCKYTORREY Attending Unavailable Kaplan, Chico P Attending Unavailable Kaplan, Chico P Admitting Unavailable Blunt, Chadwick M Primary Care Unavailable Schlachter EFFICIENCY ANALYST-ONLINE MARKETING COORDINATOR, Emir Primary Care Provide r Schlachter EFFICIENCY ANALYST-ONLINE MARKETING COORDINATOR, Emir Primary Care Provide r ASUNCION AUGUSTE Attending Unavailable SCHLACHTER, EMIR Referring Unavailable SCHLACHTER, EMIR Primary Care Unavailable SCHLACHTER, EMIR Referring Unavailable SCHLACHTER, EMIR Primary Care Unavailable ASUNCION AUGUSTE Attending Unavailable SCHLACHTER, EMIR Referring Unavailable SCHLACHTER, EMIR Primary Care Unavailable ASUNCION AUGUSTE Attending Unavailable SCHLACHTER, EMIR Referring Unavailable SCHLACHTER, EMIR Primary Care Unavailable ASUNCION AUGUSTE Attending Unavailable SCHLACHTER, EMIR Referring Unavailable SCHLACHTER, EMIR Primary Care Unavailable ASUNCION AUGUSTE Attending Unavailable SCHLACHTER, EMIR Referring Unavailable SCHLACHTER, EMIR Primary Care Unavailable ASUNCION AUGUSTE Attending Unavailable SCHLACHTER, EMIR Referring Unavailable SCHLACHTER, EMIR Primary Care Unavailable ASUNCION AUGUSTE Attending Unavailable SCHLACHTER, EMIR Referring Unavailable SCHLACHTER, EMIR Primary Care Unavailable ASUNCION AUGUSTE Attending Unavailable SCHLACHTER, EMIR Referring Unavailable SCHLACHTER, EMIR Primary Care Unavailable SCHLACHTER, EMIR Attending Unavailable SCHLACHTER, EMIR Referring Unavailable SCHLACHTER, EMIR Primary Care Unavailable SCOTTIE PLATA Attending Unavailable SCHLACHTER, EMIR Referring Unavailable SCHLACHTER, EMIR Primary Care Unavailable SCHLACHTER, EMIR Attending Unavailable SCHLACHTER, EMIR Referring Unavailable SCHLACHTER, EMIR Primary Care Unavailable SCHLACHTER, EMIR Attending Unavailable SCHLACHTER, EMIR Referring Unavailable SCHLACHTER, EMIR Primary Care Unavailable SCHLACHTER, EMIR Attending Unavailable SCHLACHTER, EMIR Referring Unavailable SCHLACHTER, EMIR Primary Care Unavailable SCHLACHTER, EMIR Attending Unavailable SCHLACHTER, EMIR Referring Unavailable SCHLACHTER, EMIR Primary Care Unavailable LEONARD SKAGGS Attending Unavailable SCHLACHTER, EMIR Referring Unavailable SCHLACHTER, EMIR Primary Care Unavailable SCHLACHTER, EMIR Attending Unavailable SCHLACHTER, EMIR Referring Unavailable SCHLACHTER, EMIR Primary Care Unavailable Unavailable Primary Care Provider Unavailabl e Allergies Allergy Classification Reported Allergen(s) Allergy Type Date of Onset Reaction(s) Facility (1 source) Acetaminophen / dichloralphenazone / isometheptene Drug Allergy 02-20-20 13 [facility] Repository (1 source) Cefaclor Drug Allergy 02-20-20 13 [facility] Repository (1 source) Cetirizine Drug Allergy 02-20-20 13 [facility] Repository (1 source) Ciprofloxacin Drug Allergy [facility] Repository (1 source) Clarithromycin Drug Allergy 02-20-20 13 [facility] Repository (3 sources) Latex; Translations: [LATEX] Drug allergy (disorder) 02-20-20 13 [facility] Repository (2 sources) Loratadine; Translations: [Claritin] Drug Allergy 02-20-20 13 [facility] Repository (1 source) Adhesive Tape; Translations: [Tape] Propensity to adverse reactions to drug (disorder) [facility] (1 source) Latex; Translations: [Latex Allergy] Propensity to adverse reactions to drug (disorder) [facility] Repository (20 sources) Citalopram; Translations: [CITALOPRAM] Drug Allergy 06-22-20 Rash [facility] Work Phone: (18 sources) Latex Propensity to adverse reactions to drug 07-04-20 Hives [facility] (1 source) Albuterol Drug Allergy 03-08-20 [facility] (1 source) Cefaclor Drug Allergy 03-08-20 [facility] (1 source) Cetirizine Drug Allergy 03-08-20 [facility] (1 source) Clarithromycin Propensity to adverse reactions 03-08-20 [facility] (1 source) Latex Propensity to adverse reactions 03-08-20 [facility] (1 source) Loratadine Propensity to adverse reactions 03-08-20 [facility] (1 source) Mold Extract Drug Allergy 03-09-20 Unknown [facility] Work Phone: (1 source) Cat Dander Allergy to substance 03-09-20 Unknown [facility] Medications Current Medications Medication Drug Class(es) Dates Sig (Normalized) Sig (Original) [id number] 200 actuat albuterol 0.09 mg/actuat metered dose inhaler (19 sources) beta2-Adrenergic Agonist Start: 02-22-2022 take 2 puff(s) by inhalation every six hours as needed for wheezing albuterol (PROVENTIL HFA;VENTOLIN HFA) 90 mcg/actuation inhaler Indications: Exercise-induced asthma Inhale 2 puffs every 6 (six) hours as needed for wheezing. 18 g 11 02/22/2022 Active take 2 puff(s) by in halation every six hours for wheezing albuterol HFA 90 mcg/act inhaler Inhale 2 puffs every 6 (six) hours if needed for wheezing Active amoxicillin 875 mg / clavulanate 125 mg oral tablet (2 sources) Penicillin-class Antibacterial Start: 03-06-2025 End: 03-16-2025 take 1 tablet by mouth once in the morning amoxicillin-pot clavulanate (AUGMENTIN) 875-125 mg per tablet Take 1 tablet by mouth in the morning and 1 tablet before bedtime. Do all this for 10 days. 20 tablet 03/06/2025 03/16/2025 Active Start: 12-17-2023 take 1 tablet by lionel th twice daily Amoxicillin-Pot Clavulanate Active 1 TAB PO Twice daily December 17, 2023 12:00am benzonatate 200 mg oral capsule (8 sources) Non-narcotic Antitussive Start: 02-19-2025 take 1 capsule by mouth three times daily as needed for cough benzonatate (TESSALON PERLES) 200 mg capsule Take 1 capsule (200 mg total) by mouth 3 (three) times a day as needed for cough. 20 capsule 02/19/2025 Active Start: 11-19-2024 take 1 capsule by mo uth three times daily as needed for cough benzonatate (TESSALON PERLES) 200 mg capsule Take 1 capsule (200 mg total) by mouth 3 (three) times a day as needed for cough. 20 capsule 11/19/2024 Active Start: 04-11-2024 End: 05-18-2024 take 1 capsule by mouth three times daily as needed for cough benzonatate (TESSALON PERLES) 200 mg capsule Take 1 capsule (200 mg total) by mouth 3 (three) times a day as needed for cough. 30 capsule 1 04/11/2024 05/18/2024 Discontinued 24 hr buPROPion hydrochloride 150 mg extended release oral tablet (10 sources) Aminoketone Start: 02-14-2025 take 1 tablet by mouth every twenty-four hours in the morning buPROPion XL (WELLBUTRIN XL) 150 mg 24 hr tablet Indications: Attention deficit hyperactivity disorder (ADHD), predominantly inattentive type Take 1 tablet (150 mg total) by mouth in the morning. Combine with the Wellbutrin XL 300mg tablet for a total daily dose of 450mg. 30 tablet 1 02/14/2025 Active Start: 12-19-2024 take 1 tablet by lionel th every twenty-four hours in the morning buPROPion XL (WELLBUTRIN XL) 300 mg 24 hr tablet Indications: Attention deficit hyperactivity disorder (ADHD), predominantly inattentive type Take 1 tablet (300 mg total) by mouth in the morning. 30 tablet 3 12/19/2024 Active Start: 11-28-2024 take 1 tablet by lionel th every twenty-four hours in the morning buPROPion XL (WELLBUTRIN XL) 150 mg 24 hr tablet Indications: Attention deficit hyperactivity disorder (ADHD), predominantly inattentive type Take 1 tablet (150 mg total) by mouth in the morning. 30 tablet 2 11/28/2024 Active Calcium Carbonate / vitamin D3 (13 sources) calcium carbonat e/vitamin D3 (CALCIUM 600 + D,3, ORAL) Take by mouth. Active calcium carbonat e/vitamin D3 (CALCIUM 600 + D,3, ORAL) Take by mouth. 0 Active cefdinir 300 mg oral capsule (7 sources) Cephalosporin Antibacterial Start: 02-19-2025 End: 03-01-2025 take 1 capsule by mouth in the morning, then take 1 capsule by mouth at bedtime cefDINIR (OMNICEF) 300 mg capsule Take 1 capsule (300 mg total) by mouth in the morning and 1 capsule (300 mg total) before bedtime. Do all this for 10 days. 20 capsule 02/19/2025 03/01/2025 Active Start: 11-19-2024 End: 11-29-2024 take 1 capsule by mouth in the morning, then take 1 capsule by mouth at bedtime cefDINIR (OMNICEF) 300 mg capsule Take 1 capsule (300 mg total) by mouth in the morning and 1 capsule (300 mg total) before bedtime. Do all this for 10 days. 20 capsule 11/19/2024 11/29/2024 Active Start: 08-02-2024 End: 08-12-2024 take 1 capsule by mouth in the morning, then take 1 capsule by mouth at bedtime cefDINIR (OMNICEF) 300 mg capsule Take 1 capsule (300 mg total) by mouth in the morning and 1 capsule (300 mg total) before bedtime. Do all this for 10 days. 20 capsule 08/02/2024 08/12/2024 Active Start: 04-11-2024 End: 04-21-2024 take 1 capsule by mouth in the morning, then take 1 capsule by mouth at bedtime cefDINIR (OMNICEF) 300 mg capsule Take 1 capsule (300 mg total) by mouth in the morning and 1 capsule (300 mg total) before bedtime. Do all this for 10 days. 20 capsule 04/11/2024 04/21/2024 Active Start: 10-03-2023 End: 10-13-2023 take 1 capsule by mouth in the morning, then take 1 capsule by mouth at bedtime cefDINIR (OMNICEF) 300 mg capsule Take 1 capsule (300 mg total) by mouth in the morning and 1 capsule (300 mg total) before bedtime. Do all this for 10 days. 20 capsule 0 10/03/2023 10/13/2023 Active cholecalciferol 0.025 mg oral tablet (19 sources) Vitamin D Start: 08-09-2024 take 1 tablet by mouth in the morning cholecalciferol (VITAMIN D3) 1,000 units tablet Indications: Fatigue, unspecified type Take 1 tablet (1,000 Units total) by mouth in the morning. 90 tablet 3 08/09/2024 Active Start: 03-29-2024 take 1 tablet by lionel th in the morning cholecalciferol, vitamin D3, (VITAMIN D3) 1,000 units tablet Indications: Fatigue, unspecified type Take 1 tablet (1,000 Units total) by mouth in the morning. 30 tablet 3 03/29/2024 Active Start: 08-04-2023 take 1 tablet by lionel th in the morning cholecalciferol (Vitamin D-3) 10 MCG (400 UNIT) tablet Take 400 Units by mouth in the morning. 08/04/2023 Active doxycycline hyclate 100 mg oral capsule (1 source) Tetracycline-class Drug Start: 12-14-2024 End: 12-24-2024 take 1 capsule by mouth in the morning, then take 1 capsule by mouth at bedtime doxycycline (VIBRAMYCIN) 100 mg capsule Take 1 capsule (100 mg total) by mouth in the morning and 1 capsule (100 mg total) before bedtime. Do all this for 10 days. 20 capsule 12/14/2024 12/24/2024 Active DULoxetine 60 mg delayed release oral capsule (19 sources) Serotonin and Norepinephrine Reuptake Inhibitor Start: 10-03-2024 take 2 capsules by mouth in the morning DULoxetine (CYMBALTA) 60 mg capsule Indications: Generalized anxiety disorder Take 2 capsules (120 mg total) by mouth in the morning. 180 capsule 3 10/03/2024 Active Start: 06-06-2024 take 2 capsules by m outh in the morning DULoxetine (CYMBALTA) 60 mg capsule Indications: Generalized anxiety disorder Take 2 capsules (120 mg total) by mouth in the morning. 180 capsule 1 06/06/2024 Active Start: 02-09-2024 take 2 capsules by m outh in the morning DULoxetine (CYMBALTA) 60 mg capsule Indications: Generalized anxiety disorder Take 2 capsules (120 mg total) by mouth in the morning. 180 capsule 1 02/09/2024 Active Start: 01-21-2023 take 2 capsules by m outh in the morning DULoxetine (CYMBALTA) 60 mg capsule Indications: Generalized anxiety disorder Take 2 capsules (120 mg total) by mouth in the morning. 180 capsule 3 01/21/2023 Active take 1 capsule by mo uth in the morning DULoxetine (Cymbalta) [address] capsule Take 60 mg by mouth in the morning and 60 mg before bedtime. Do not crush or chew.. Active 24 hr loratadine 10 mg / pseudoephedrine sulfate 240 mg extended release oral tablet (20 sources) alpha-Adrenergic Agonist Start: 05-10-2023 End: 11-23-2024 take 1 tablet by mouth every twenty-four hours in the morning loratadine-pseudoephedrine (LORATADINE-D) 10-240 mg per 24 hr tablet Indications: Seasonal allergies Take 1 tablet by mouth in the morning. 30 tablet 5 11/23/2024 Active meloxicam 15 mg oral tablet (10 sources) Nonsteroidal Anti-inflammatory Drug Start: 12-16-2023 take [...] Discontinued (Reorder) methocarbamol 750 mg oral tablet (10 sources) Muscle Relaxant Start: 12-16-2023 take 1 [...] Discontinued (Reorder) methylPREDNISolone 4 mg oral tablet (6 sources) Corticosteroid Start: 02-19-2025 End: 03-06-2025 take 1 tablet by mouth in the morning methylPREDNISolone (MEDROL, KADY,) 4 mg tablet Take 1 tablet (4 mg total) by mouth in the morning. follow package directions. 21 tablet 02/19/2025 03/06/2025 Discontinued Start: 11-19-2024 take 1 tablet by lionel th in the morning methylPREDNISolone (MEDROL, KADY,) 4 mg tablet Take 1 tablet (4 mg total) by mouth in the morning. follow package directions. 21 tablet 11/19/2024 Active Start: 12-17-2023 take 1 tablet by mouth once Me thylprednisolone (Medrol (Kady)) 4 mg tablets,dose pack Active 0 PO per package directions December 17, 2023 12:00am PO PER PKG DIR for 6 days iksyubclbiki-zbnpuale-croryu (CENTRUM SILVER) tablet (18 sources) take 1 tablet by mouth in the morning uzpdkpomurez-pxrmsxcx-dypabn (CENTRUM SILVER) tablet Take 1 tablet by mouth in the morning. Active take 1 tablet by lionel th in the morning kizityvdphsu-bddkmwcs-bxrsvd (CENTRUM SI LVER) tablet Take 1 tablet by mouth in the morning. 0 Active nortriptyline 50 mg oral capsule (5 sources) Tricyclic Antidepressant Start: 09-05-2023 take 2 capsules by mouth once daily nortriptyline (PAMELOR) 50 mg capsule Indications: Generalized anxiety disorder , Insomnia due to medical condition Take 2 capsules (100 mg total) by mouth nightly. 180 capsule 1 09/05/2023 Active predniSONE 10 mg oral tablet (1 source) Start: 03-06-2025 End: 03-14-2025 take 6 tablets by mouth once daily in the morning, then take 1 tablet by mouth once daily at mealtime predniSONE (STERAPRED DS) 10 mg tablet pack Take by mouth in the morning for 8 days. 6 tabs qd x 3 d then 1 less each day with food. 33 tablet 03/06/2025 03/14/2025 Active silver sulfADIAZINE 10 mg/ml topical cream (4 sources) Sulfonamide Antibacterial Start: 03-02-2024 silver sulfADIAZINE (SILVADENE, SSD) 1 % cream Apply 1 Application topically in the morning. 50 g 1 03/02/2024 Active traZODone hydrochloride 100 mg oral tablet (10 sources) Serotonin Reuptake Inhibitor Start: 02-15-2025 take 1 tablet by mouth once daily as needed for sleep traZODone (DESYREL) 100 mg tablet Indications: Insomnia due to other mental disorder Take 1 tablet (100 mg total) by mouth nightly as needed for sleep. 30 tablet 2 02/15/2025 Active Start: 10-31-2024 End: 02-15-2025 take 1 tablet by mouth once daily as needed for sleep traZODone (DESYREL) 50 mg tablet Indications: Insomnia due to other mental disorder Take 1 tablet (50 mg total) by mouth nightly as needed for sleep. 30 tablet 3 10/31/2024 02/15/2025 Discontinued vitamin e 180 mg oral tablet (19 sources) Vitamin E 400 un its tablet Take 600 mg by mouth Daily Active take 1 capsule by mouth in the m orning vitamin E 600 UNIT capsule Take 1 capsule (600 Units total) by mouth in the morning. Active Completed/Discontinued Medications Medication Drug Class(es) Dates Sig (Normalized) Sig (Original) hydrOXYzine hydrochloride 50 mg oral tablet (11 sources) Antihistamine Start: 08-09-2024 End: 11-19-2024 take 1 tablet by mouth twice daily as needed for anxiety hydrOXYzine (ATARAX) 50 mg tablet Indications: Generalized anxiety disorder Take 1 tablet (50 mg total) by mouth 2 (two) times a day as needed for anxiety (or sleep). 180 tablet 3 08/09/2024 11/19/2024 Discontinued (Alternate therapy) Start: 03-29-2024 take 1 tablet by lionel th twice daily as needed for anxiety hydrOXYzine (ATARAX) 50 mg tablet Indications: Generalized anxiety disorder Take 1 tablet (50 mg total) by mouth 2 (two) times a day as needed for anxiety (or sleep). 60 tablet 3 03/29/2024 Active Start: 12-30-2023 take 1 tablet by lionel th twice daily as needed for anxiety hydrOXYzine (ATARAX) 50 mg tablet Indications: Generalized anxiety disorder Take 1 tablet (50 mg total) by mouth 2 (two) times a day as needed for anxiety (or sleep). 60 tablet 3 12/30/2023 Active Start: 11-17-2023 End: 12-30-2023 take 1 tablet by mouth three times daily as needed for anxiety hydrOXYzine (ATARAX) 25 mg tablet Indications: Generalized anxiety disorder Take 1 tablet (25 mg total) by mouth 3 (three) times a day as needed for anxiety. 90 tablet 3 11/17/2023 12/30/2023 Discontinued Start: 04-01-2023 End: 10-03-2023 take 1 tablet by mouth three times daily as needed for anxiety hydrOXYzine (ATARAX) 25 mg tablet Indications: Generalized anxiety disorder Take 1 tablet (25 mg total) by mouth 3 (three) times a day as needed for anxiety. 90 tablet 3 04/01/2023 10/03/2023 Discontinued hydrOXYzine pamo ate (Vistaril) 25 MG capsule Take 50 mg by mouth as needed at bedtime for itching Active Lactobac no.41/Bifidobact no.7 (PROBIOTIC-10 ORAL) (2 sources) [...] vomiting. 20 tablet 0 09/15/2023 10/03/2023 Discontinued Problems Active Problems Problem Classification Problem Date Documented Date Episodic/Chronic Abdominal pain (4 sources) Pelvic and perineal pain; Translations: [PELVIC AND PERINEAL PAIN] Onset: 12-05-2021 Episodic Anxiety disorders (20 sources) Generalized anxiety disorder; Translations: [Generalized anxiety disorder] Onset: 06-22-2022 Resolved: 04-01-2023 06-22-2022 Chronic Attention-deficit, conduct, and disruptive behavior disorders (20 sources) Attention deficit hyperactivity disorder, predominantly inattentive type; Translations: [Attention-deficit hyperactivity disorder, predominantly inattentive type] Onset: 12-14-2022 12-14-2022 Chronic Attention-deficit, conduct, and disruptive behavior disorders (2 sources) Attention-deficit hyperactivity disorder, predominantly inattentive type; Translations: [Attention-deficit hyperactivity disorder, predominantly inattentive type] Onset: 12-14-2022 Chronic Endometriosis (18 sources) Endometriosis (clinical); Translations: [Endometriosis, unspecified] 08-06-2020 Chronic Immunizations and screening for infectious disease (2 sources) Contact with and (suspected) exposure to infections with a predominantly sexual mode of transmission; Translations: [Encounter for screening for human papillomavirus (HPV)] Onset: 12-01-2021 Episodic Miscellaneous mental health disorders (3 sources) Insomnia due to other mental disorder; Translations: [Mental disorder, not otherwise specified] Onset: 10-31-2024 02-15-2025 Chronic Other circulatory disease (5 sources) Raynaud's disease; Translations: [Raynaud's syndrome without gangrene] 11-23-2024 Chronic Other circulatory disease (1 source) Raynaud's syndrome without gangrene; Translations: [Raynaud's syndrome without gangrene] Onset: 11-23-2024 Chronic Other ear and sense organ disorders (1 source) Hearing change; Translations: [Unspecified hearing loss, bilateral] 08-02-2024 Chronic Other ear and sense organ disorders (1 source) Unspecified hearing loss, bilateral; Translations: [Unspecified hearing loss, bilateral] Onset: 08-02-2024 Chronic Other female genital disorders (1 source) Other specified noninflammatory disorders of vagina; Translations: [OTH SPEC NONINFLAMMATORY D/O VAGINA] Onset: 12-01-2021 Episodic Other injuries and conditions due to external causes (1 source) Injury of face; Translations: [Unspecified injury of face, initial encounter] 11-23-2024 Episodic Other injuries and conditions due to external causes (1 source) Unspecified injury of face, initial encounter; Translations: [Unspecified injury of face, initial encounter] Onset: 11-23-2024 Episodic Other screening for suspected conditions (not mental disorders or infectious disease) (4 sources) Encounter for screening for malignant neoplasm of cervix; Translations: [ENC SCREENING MALIG NEOPLASM CERV] Onset: 11-30-2021 Episodic Other upper respiratory disease (1 source) Seasonal allergy; Translations: [Other seasonal allergic rhinitis] 11-23-2024 Chronic Other upper respiratory disease (1 source) Other seasonal allergic rhinitis; Translations: [Other seasonal allergic rhinitis] Onset: 11-23-2024 Chronic Other upper respiratory infections (1 source) Sinusitis Onset: 04-11-2024 Chronic Ovarian cyst (4 sources) Unspecified ovarian cyst, left side; Translations: [UNSPECIFIED OVARIAN CYST LEFT SIDE] Onset: 01-09-2022 Episodic Spondylosis; intervertebral disc disorders; other back problems (20 sources) Degeneration of lumbar intervertebral disc; Translations: [Other intervertebral disc degeneration, lumbar region] Onset: 10-22-2022 10-22-2022 Chronic Unclassified (1 source) Circulatory Problem Onset: 01-07-2025 Unclassified (1 source) Other intervertebral disc degeneration, lumbar region without mention of lumbar back pain or lower extremity pain; Translations: [Other intervertebral disc degeneration, lumbar region without mention of lumbar back pain or lower extremity pain] Onset: 10-22-2022 Unclassified (1 source) Annual Exam Onset: 11-23-2024 Past or Other Problems Problem Classification Problem Date Documented Da te Episodic/Chronic Acute bronchitis (4 sources) Acute bronchitis; Translations: [Acute bronchitis, unspecified] Onset: 04-11-2024 04-11-2024 Episodic Malaise and fatigue (1 source) Other fatigue; Translations: [Other fatigue] Onset: 03-29-2024 Episodic Mood disorders (18 sources) Mood disorders Onset: 11-08-2022 Resolved: 02-19-2025 11-08-2022 Other connective tissue disease (20 sources) Fibromyalgia; Translations: [Fibromyalgia] Onset: 10-22-2022 10-22-2022 Episodic Other connective tissue disease (1 source) Fibromyalgia; Translations: [Fibromyalgia] Onset: 10-22-2022 Episodic Other lower respiratory disease (1 source) Cough Onset: 04-11-2024 Episodic Other skin disorders (1 source) Blister Onset: 03-02-2024 Episodic Other upper respiratory disease (1 source) Nasal congestion Onset: 08-02-2024 Episodic Other upper respiratory infections (8 sources) Sore throat symptom; Translations: [Acute pharyngitis, unspecified] Onset: 04-11-2024 12-17-2023 Episodic Otitis media and related conditions (19 sources) Otitis media, unspecified, left ear; Translations: [Unspecified otitis media] Onset: 07-04-2017 12-17-2023 Episodic Residual codes; unclassified (1 source) Hearing change 08-02-2024 Episodic Superficial injury; contusion (2 sources) Blister of foot; Translations: [Blister (nonthermal), unspecified foot, initial encounter] Onset: 03-02-2024 03-02-2024 Episodic Unclassified (18 sources) Onset: 08-19-2023 Resolved: 02-19-2025 08-19-2023 Results Test Name Value Interpretation Reference Range Facility CBC AND AUTO DIFFon 03-12-20 ABSOLUTE BASOPHIL 0.0 X10E9/L Normal 0.0-0.2 [facility] Comment on above: Performed By: #### Jose SIMON, [id number], [id number], CMP #### [facility] ([id number]) [address], [address] [place] [address] ABSOLUTE NEUTROPHIL 4.5 X10E9/L Normal 1.5-6.6 [facility] Comment on above: Performed By: #### Jose SIMON, [id number], [id number], CMP #### [facility] ([id number]) [address], [address] [place] [address] Basophils/100 WBC (Bld) 0.7 % Normal [facility] Comment on above: Performed By: #### Jose SIMON, 36030-4, 43938-4, CMP #### [facility] ([id number]) [address], [address] [place] [address] Eosinophils (Bld) [#/Vol] 0.1 10*3/uL Normal 0.0-0.4 [facility] Comment on above: Performed By: #### Jose SIMON, 45606-8, 24549-6, CMP #### [facility] ([id number]) [address], [address] [place] [address] Eosinophils/100 WBC (Bld) 2.1 % Normal [facility] Comment on above: Performed By: #### Jose SIMON, 20626-3, 85043-5, CMP #### [facility] ([id number]) [address], [facility] [address] [place] [address] Erythrocyte distribution width (RBC) [Ratio] 13.6 % Normal 11.5-15.0 [facility] Comment on above: Performed By: #### Jose SIMON, 21653-4, 03638-8, CMP #### [facility] ([id number]) [address] [address] [place] [address] Hematocrit (Bld) [Volume fraction] 37.2 % Normal 35-47 [facility] Comment on above: Performed By: #### Jose SIMON, 66434-3, 37820-8, CMP #### [facility] ([id number]) [address], [facility] [address] [place] [address] Hemoglobin (Bld) [Mass/Vol] 12.7 g/dL Normal 11.7-15.5 [facility] Comment on above: Performed By: #### Jose SIMON, 65381-5, 98022-3, CMP #### [facility] ([id number]) [address] [address] [place] [address] Lymphocytes (Bld) [#/Vol] 1.6 10*3/uL Normal 1.0-3.5 [facility] Comment on above: Performed By: #### Jose SIMON, 69178-5, 17358-8, CMP #### [facility] ([id number]) [address], [address] [place] [address] Lymphocytes/100 WBC (Bld) 23.9 % Normal [facility] Comment on above: Performed By: #### Jose SIMON, 71548-9, 00402-4, CMP #### [facility] ([id number]) [address], [address] [place] [address] MCH (RBC) [Entitic mass] 30.1 pg Normal 27-34 [facility] Comment on above: Performed By: #### Jose SIMON, 80308-6, 75856-2, CMP #### [facility] ([id number]) [address], [address] [place] [address] MCHC (RBC) [Mass/Vol] 34.2 g/dL Normal 32-36 [facility] Comment on above: Performed By: #### Jose SIMON, 55049-5, 64042-2, CMP #### [facility] ([id number]) [address], [address] [place] [address] MCV (RBC) [Entitic vol] 88 fL Normal 80-100 P [facility] Comment on above: Performed By: #### Jose SIMON, 66791-3, 18636-5, CMP #### [facility] ([id number]) [address], [address] [place] [address] Monocytes (Bld) [#/Vol] 0.5 10*3/uL Normal 0-0.9 [facility] Comment on above: Performed By: #### Jose SIMON, 69093-3, 71084-4, CMP #### [facility] ([id number]) [address], [address] [place] [address] Monocytes/100 WBC (Bld) 8.0 % Normal P [facility] Comment on above: Performed By: #### Jose SIMON, 28953-3, 39820-9, CMP #### [facility] ([id number]) [address], [address] [place] [address] Neutrophils/100 WBC (Bld) 65.3 % Normal [facility] Comment on above: Performed By: #### Jose SIMON, 29928-6, 76265-9, CMP #### [facility] ([id number]) [address], [address] [place] [address] Platelet mean volume (Bld) [Entitic vol] 7.3 fL Normal 7-12 [facility] Comment on above: Performed By: #### Jose SIMON, 05974-7, 36163-2, CMP #### [facility] ([id number]) [address], [address] [place] [address] Platelets (Bld) [#/Vol] 298 10*3/uL Normal 150-450 [facility] Comment on above: Performed By: #### Jose SIMON, 53181-5, 61437-2, CMP #### [facility] ([id number]) [address], [address] [place] [address] RBC COUNT 4.23 X10E12/L Normal 3.80-5.20 [facility] Comment on above: Performed By: #### Jose SIMON, 31361-2, 49719-0, CMP #### [facility] ([id number]) [address], [address] [place] [address] WBC (Bld) [#/Vol] 6.8 10*3/uL Normal 4.0-11.0 [facility] Comment on above: Performed By: #### Jose SIMON, 86817-3, 26232-7, CMP #### [facility] ([id number]) [address], [address] [place] [address] COMPREHENSIVE METABOLIC PANE Jagjit 03-12-2024 Albumin [Mass/Vol] 4.1 g/dL Normal 3.2-5.3 [facility] Comment on above: Performed By: #### Jose SIMON, 10858-6, 70095-5, CMP #### [facility] ([id number]) [address], [address] [place] [address] ALP [Catalytic activity/Vol] 49 U/L Normal 39-130 [facility] Comment on above: Performed By: #### C BCA, 06074-7, 66523-6, CMP #### [facility] ([id number]) [address], [address] [place] [address] ALT [Catalytic activity/Vol] 21 U/L Normal 0-31 [facility] Comment on above: Performed By: #### C BCA, 13769-6, 59696-1, CMP #### [facility] ([id number]) [address], [address] [place] [address] Anion gap [Moles/Vol] 7 mmol/L Normal 5-15 [facility] Comment on above: Performed By: #### C BCA, 29276-2, 44280-5, CMP #### [facility] ([id number]) [address], [address] [place] [address] AST [Catalytic activity/Vol] 19 U/L Normal 0-41 [facility] Comment on above: Performed By: #### C BCA, 36904-7, 42570-2, CMP #### [facility] ([id number]) [address], [address] [place] [address] Bilirubin [Mass/Vol] 1.1 mg/dL Normal 0.3-1.2 [facility] Comment on above: Performed By: #### C BCA, 79921-2, 93620-6, CMP #### [facility] ([id number]) [address], [address] [place] [address] Calcium [Mass/Vol] 9.1 mg/dL Normal 8.5-10.5 [facility] Comment on above: Performed By: #### C BCA, 48554-4, 47584-9, CMP #### [facility] ([id number]) [address], [address] [place] [address] Chloride [Moles/Vol] 101 mmol/L Normal 98-109 [facility] Comment on above: Performed By: #### C BCA, 97953-6, 05531-7, CMP #### [facility] ([id number]) [address], [address] [place] [address] CO2 [Moles/Vol] 32 mmol/L Normal 22-32 [facility] Comment on above: Performed By: #### C BCA, 62807-9, 04947-6, CMP #### [facility] ([id number]) [address], [address] [place] [address] Creatinine [Mass/Vol] 0.85 mg/dL Normal 0.40-1.00 [facility] Comment on above: Result Comment: METH OD TRACEABLE TO IDMS STANDARD Performed By: #### C AURORA, 25094-9, 82929-0, CMP #### [facility] ([id number]) [address], [address] [place] [address] GFR/1.73 sq M.predicted among non-blacks MDRD (S/P/Bld) [Vol rate/Area] 88 mL/min/{1.73_m2} Normal >59 [facility] Comment on above: Result Comment: Reported eGFR is based on the CKD-EPI 2020 equation that does not use a race coefficient. Performed By: #### C BCA, 62614-6, 47817-8, CMP #### [facility] ([id number]) [address], [address] [place] [address] Glucose [Mass/Vol] 85 mg/dL Normal 65-99 [facility] Comment on above: Performed By: #### C BCA, 04979-7, 80425-3, CMP #### [facility] ([id number]) [address], [address] [place] [address] Potassium [Moles/Vol] 4.0 mmol/L Normal 3.5-5.0 [facility] Comment on above: Performed By: #### Jose SIMON, 22996-1, 86851-8, CMP #### [facility] ([id number]) [address], [address] [place] [address] Protein [Mass/Vol] 6.3 g/dL Normal 6.0-8.0 [facility] Comment on above: Performed By: #### Jose SIMON, 89986-3, 15183-4, CMP #### [facility] ([id number]) [address], [address] [place] [address] Sodium [Moles/Vol] 140 mmol/L Normal 134-146 [facility] Comment on above: Performed By: #### Jose SIMON, 03660-1, 52227-1, CMP #### [facility] ([id number]) [address], [address] [place] [address] Urea nitrogen [Mass/Vol] 18 mg/dL Normal 5-23 [facility] Comment on above: Performed By: #### Jose SIMON, 25721-5, 39332-5, CMP #### [facility] ([id number]) [address], [address] [place] [address] Lipid 1996 panelon 4 Cholesterol [Mass/Vol] 197 mg/dL Normal 150-200 [facility] Comment on above: Performed By: #### Jose SIMON, 72932-6, 94423-5, CMP #### [facility] ([id number]) [address], [address] [place] [address] Cholesterol in HDL [Mass/Vol] 75 mg/dL Normal >39 [facility] Comment on above: Result Comment: HDL <40 mg/dL - High Risk HDL > or = 40mg/dL- Desirable HDL >60 mg/dL - Negative Risk Performed By: #### Jose SIMON, 40151-7, 91709-4, CMP #### [facility] ([id number]) [address], [address] [place] [address] Cholesterol in LDL [Mass/Vol] 97 mg/dL Normal <130 [facility] Comment on above: Result Comment: LDL <100 mg/dL - Desirable LDL >160 mg/dL - High Risk Performed By: #### Jose SIMON, 35389-5, 42605-5, CMP #### [facility] ([id number]) [address], [address] [place] [address] Cholesterol in VLDL [Mass/Vol] 25 mg/dL Normal 0-30 [facility] Comment on above: Performed By: #### Jose SIMON, 55173-2, 70461-0, CMP #### [facility] ([id number]) [address], [address] [place] [address] CHOLESTEROL:HDL 2.6 Normal 1.0-5.0 [facility] Comment on above: Performed By: #### Jose SIMON, 19963-6, 06715-6, CMP #### [facility] ([id number]) [address], [address] [place] [address] Triglyceride [Mass/Vol] 127 mg/dL Normal 27-150 P [facility] Comment on above: Performed By: #### Jose SIMON, 57385-5, 83929-0, CMP #### [facility] ([id number]) [address], [address] [place] [address] Vitamin D+Metabolites [Mass/ Vol]on 03-12-2024 VITAMIN D 25 HYD TOT 37.4 ng/mL Normal 30-100 [facility] Comment on above: Result Comment: Vitamin D status 25 [place] Vitamin D Deficiency <20 ng/mL Insufficiency 20-29 ng/mL Sufficiency 30-100 ng/mL Toxicity >100 ng/mL NOTE: A pediatric reference range has not been established by the qa developer of this kit. The [place] [employer] recommends a Vitamin D level of = or >20ng/mL in infants and children. Performed By: #### C BCA, 90770-0, 32879-0, [facility] #### [facility] ([id number]) [address] [place] [address], [address] [place] [address] No Panel InformationOrdered By: Ludy Mena on 12-17-2023 Quick Strep (POC) [facility] US PELVIS AND TRANSVAGon US PELVIS AND [...] by: SCOTTIE NGUYEN Date: 2022-01-11 17:[address] [facility] PAP ACOG PANEL 2: 30 to 65on 12-08-2021 . . Normal [facility] Comment on above: Result Comment: Perf ormed at: WB Performed By: #### 4 [id number] #### [facility] [address] [place] [address] Dr. Ewa Mathews Age Gdln ACOG Testing 30-[address] [facility] Comment on above: Performed By: #### 4 [id number] #### [facility] [address] [place] [address] Dr. Ewa Mathews DIAGNOSIS: Comment Normal [facility] Comment on above: Result Comment: NEGA TIVE FOR INTRAEPITHELIAL LESION OR MALIGNANCY. PREDOMINANCE OF COCCOBACILLI CONSISTENT WITH SHIFT IN VAGINAL JAH IS PRESENT. Performed at: WB Performed By: #### 4 [id number] #### [facility] [address] [place] [address] Dr. Ewa Mathews HPV Aptima Positive Abnormal Negative [facility] Comment on above: Result Comment: This nucleic acid amplification test detects fourteen high-risk HPV types (16,18,31,33,35,39,45,51,52,56,58,59,66,68) without differentiation. Performed at: =G Performed By: #### 4 [id number] #### [facility] [address] [place] [address] Dr. Ewa Mathews HPV Genotype 16 Negative Normal Negative [facility] Comment on above: Result Comment: Perf ormed at: =G Performed By: #### 4 [id number] #### [facility] [address] [place] [address] Dr. Ewa Mathews HPV Genotype 18,45 Negative Normal Negative [facility] Comment on above: Result Comment: Perf ormed at: =G Performed By: #### 4 [id number] #### [facility] [address] [place] [address] Dr. Ewa Mathews Methodology: Comment Normal [facility] Comment on above: Result Comment: This liquid based ThinPrep(R) pap test was screened with the use of an image guided system. Performed at: WB Performed By: #### 4 [id number] #### [facility] [address] [place] [address] Dr. Ewa Mathews Note: Comment Normal [facility] Comment on above: Result Comment: The Pap smear is a screening test designed to aid in the detection of premalignant and malignant conditions of the uterine cervix. It is not a diagnostic procedure and should not be used as the sole means of detecting cervical cancer. Both false-positive and false-negative reports do occur. . Performed at: WB Performed By: #### 4 [id number] #### [facility] [address] [place] [address] Dr. Ewa Mathews Performed by: Comment Normal [facility] Comment on above: Result Comment: Daniel Vu, [employer] (ASCP) Performed at: WB Performed By: #### 4 [id number] #### [facility] [address] [place] [address] Dr. Ewa Mathews Specimen adequacy: Comment Normal [facility] Comment on above: Result Comment: Sati sfactory for evaluation. No endocervical cells are present. This is consistent with a history of hysterectomy. Performed at: WB Performed By: #### 4 [id number] #### [facility] [address] [place] [address] Dr. Ewa Mathews HEPATITIS PANEL, ACUTEon HBsAg Screen Negative Normal Negative [facility] Comment on above: Performed By: #### H EPACUT #### [facility] [address] [place] [address] Dr. Ewa Mathews Hep A Ab, IgM Negative Normal Negative [facility] Comment on above: Performed By: #### H EPACUT #### [facility] [address] [place] [address] Dr. Ewa Mathews Hep B Core Ab, IgM Negative Normal Negative [facility] Comment on above: Performed By: #### H EPACUT #### [facility] [address] [place] [address] Dr. Ewa Mathews Hep C Virus Ab <0.1 Normal 0.0-0.9 [facility] Comment on above: Result Comment: Nega tive: < 0.8 Indeterminate: 0.8 - 0.9 Positive: > 0.9 . The CDC recommends that a positive HCV antibody result be followed up with a HCV Nucleic Acid Amplification test (206748). Effective January 18, 2022 Hepatitis Panel (4) will be made non-orderable. [facility] offers order code [id number] Acute Hepatitis. Performed By: #### H EPACUT #### [facility] [address] [address] [address] Ewa Mathews HIV 1 AND 2 WITH REFLEXon HIV Screen 4th Generation wRfx Non-Reactive Normal Non Reactive [facility] Comment on above: Result Comment: HIV Negative HIV-1/HIV-2 antibodies and HIV-1 p24 antigen were NOT detected. There is no laboratory evidence of HIV infection. Performed By: #### H IV12 #### [facility] [address] [address] [address] Ewa Mathews RPR QUANTon 12-06-2021 Rapid Plasma Reagin, Quant Non-Reactive Normal NonRea<1:1 [facility] Comment on above: Performed By: #### R PRQ #### [facility] [address] [place] [address] Dr. Ewa Mathews US PELVIS AND TRANSVAGon [...] GISELE DUPONT Date: 2021-12-05 16:46 Normal [facility] CHLAMYDIA/GONOCOCCUS DESEAN (SW AB/URINE/PAPon 12-02-2021 Chlamydia trachomatis, DESEAN Negative Normal Negative [facility] Comment on above: Performed By: #### C T/NGNA #### [facility] [address] [address] [address] Ewa Mathews Neisseria gonorrhoeae, DESEAN Negative Normal Negative [facility] Comment on above: Performed By: #### C T/NGNA #### [facility] [address] [address] [address] Ewa Mathews VAGINITIS/VAGINOSIS DNA PROB [place] 12-02-2021 Debbie species Negative Normal Negative [facility] Comment on above: Performed By: #### V AGINT #### [facility] [address] [address] [address] Ewa Mathews Gardnerella vaginalis Positive Abnormal Negative [facility] Comment on above: Performed By: #### V AGINT #### [facility] [address] [address] [address] Ewa Mathews Trichomonas vaginalis Negative Normal Negative [facility] Comment on above: Performed By: #### V AGINT #### [facility] [address] [address] [address] Ewa Mathews Progress Noteon 03-30-2018 HIM IP Note OR [employer] Normal [facility] Vital Signs Date Time Vital Sign Value Performing Clinician Crystal herman 02-19-2025 11:17040 Body mass index (BMI) [Ratio] 28.55 kg/m2 Emir Duggan APRN-ONLINE MARKETING COORDINATOR Work Phone: [facility] 02-19-2025 11:17040 Body temperature 99.3 [degF] Emir Duggan APRN-ONLINE MARKETING COORDINATOR Work Phone: [facility] 02-19-2025 11:17040 Body weight 90.27 kg Emir Duggan APRN-ONLINE MARKETING COORDINATOR Work Phone: [facility] 02-19-2025 11:17040 Diastolic blood pressure 74 mm[Hg] Emir Duggan APRN-ONLINE MARKETING COORDINATOR Work Phone: [facility] 02-19-2025 11:17-040 Heart rate 77 /min Emir Duggan APRN-ONLINE MARKETING COORDINATOR Work Phone: [facility] [employer] [facility] 02-19-2025 11:17-0400 Respiratory rate 18 /min Emir Duggan APRN-ONLINE MARKETING COORDINATOR Work Phone: [facility] [employer] [facility] 02-19-2025 11:17-0400 SaO2% (BldA) [Mass fraction] 97 % Emir Duggan APRN-ONLINE MARKETING COORDINATOR Work Phone: [facility] [employer] [facility] 02-19-2025 11:17-0400 Systolic blood pressure 124 mm[Hg] Emir Duggan EFFICIENCY ANALYST-ONLINE MARKETING COORDINATOR Work Phone: [facility] [employer] [facility] 01-07-2025 15:45-0400 Body mass index (BMI) [Ratio] 29.99 kg/m2 Leonard Skaggs DO Work Phone: [facility] [employer] [facility] 01-07-2025 15:45-0400 Body weight 94.8 kg Leonard Skaggs DO Work Phone: [facility] [employer] 01-07-2025 15:45-0400 Diastolic blood pressure 79 mm[Hg] Leonard Skaggs DO Work Phone: [facility] [employer] 01-07-2025 15:45-0400 Heart rate 74 /min Leonard Skaggs DO Work Phone: [facility] [employer] 01-07-2025 15:45-0400 Systolic blood pressure 119 mm[Hg] Leonard Skaggs DO Work Phone: [facility] [employer] [facility] 11-23-2024 10:35-0500 Body height 177.8 cm Emir Duggan APRN-ONLINE MARKETING COORDINATOR Work Phone: [facility] [employer] [facility] 11-23-2024 10:35-0500 Body mass index (BMI) [Ratio] 30.99 kg/m2 Emir Duggan APRN-ONLINE MARKETING COORDINATOR Work Phone: [facility] [employer] [facility] 11-23-2024 10:35-0500 Body weight 97.98 kg Emir Duggan EFFICIENCY ANALYST-ONLINE MARKETING COORDINATOR Work Phone: [facility] 11-23-2024 10:35-0500 Diastolic blood pressure 78 mm[Hg] Emir Duggan EFFICIENCY ANALYST-ONLINE MARKETING COORDINATOR Work Phone: [facility] [facility] 11-23-2024 10:35-0500 Heart rate 80 /min Emir Avilaer EFFICIENCY ANALYST-ONLINE MARKETING COORDINATOR Work Phone: [facility] 11-23-2024 10:35-0500 Respiratory rate 18 /min Emir Avilaer EFFICIENCY ANALYST-ONLINE MARKETING COORDINATOR Work Phone: [facility] 11-23-2024 10:35-0500 SaO2% (BldA) [Mass fraction] 97 % Emir Avilaer EFFICIENCY ANALYST-ONLINE MARKETING COORDINATOR Work Phone: [facility] 11-23-2024 10:35-0500 Systolic blood pressure 122 mm[Hg] Emir Avilaer EFFICIENCY ANALYST-ONLINE MARKETING COORDINATOR Work Phone: [facility] 11-19-2024 14:16-0500 Body mass index (BMI) [Ratio] 30.27 kg/m2 Emir Avilaer EFFICIENCY ANALYST-ONLINE MARKETING COORDINATOR Work Phone: [facility] 11-19-2024 14:16-0500 Body temperature 98.4 [degF] Emir Avilaer EFFICIENCY ANALYST-ONLINE MARKETING COORDINATOR Work Phone: [facility] 11-19-2024 14:16-0500 Body weight 98.43 kg Emir Duggan EFFICIENCY ANALYST-ONLINE MARKETING COORDINATOR Work Phone: [facility] 11-19-2024 14:16-0500 Diastolic blood pressure 74 mm[Hg] Emir Avilaer EFFICIENCY ANALYST-ONLINE MARKETING COORDINATOR Work Phone: [facility] 11-19-2024 14:16-0500 Heart rate 85 /min Emir Avilaer EFFICIENCY ANALYST-ONLINE MARKETING COORDINATOR Work Phone: [facility] 11-19-2024 14:16-0500 Respiratory rate 18 /min Emir Avilaer EFFICIENCY ANALYST-ONLINE MARKETING COORDINATOR Work Phone: [facility] 11-19-2024 14:16-0500 SaO2% (BldA) [Mass fraction] 98 % Emir Avilaer EFFICIENCY ANALYST-ONLINE MARKETING COORDINATOR Work Phone: [facility] 11-19-2024 14:16-0500 Systolic blood pressure 124 mm[Hg] Emir Austiner EFFICIENCY ANALYST-ONLINE MARKETING COORDINATOR Work Phone: [facility] 08-02-2024 13:44-0500 Body mass index (BMI) [Ratio] 29.71 kg/m2 Emir Avilaer EFFICIENCY ANALYST-ONLINE MARKETING COORDINATOR Work Phone: [facility] 08-02-2024 13:44-0500 Body weight 96.62 kg Emir Sibleychter EFFICIENCY ANALYST-ONLINE MARKETING COORDINATOR Work Phone: [facility] 08-02-2024 13:44-0500 Diastolic blood pressure 70 mm[Hg] Emir Avilaer EFFICIENCY ANALYST-ONLINE MARKETING COORDINATOR Work Phone: [facility] 08-02-2024 13:44-0500 Heart rate 78 /min Emir Avilaer EFFICIENCY ANALYST-ONLINE MARKETING COORDINATOR Work Phone: [facility] 08-02-2024 13:44-0500 Respiratory rate 18 /min Emir Avilaer EFFICIENCY ANALYST-ONLINE MARKETING COORDINATOR Work Phone: [facility] 08-02-2024 13:44-0500 SaO2% (BldA) [Mass fraction] 98 % Emir Avilaer EFFICIENCY ANALYST-ONLINE MARKETING COORDINATOR Work Phone: [facility] 08-02-2024 13:44-0500 Systolic blood pressure 122 mm[Hg] Emir Sibleychter EFFICIENCY ANALYST-ONLINE MARKETING COORDINATOR Work Phone: [facility] 05-18-2024 08:30-0400 Body mass index (BMI) [Ratio] 28.87 kg/m2 Emir Sibleychter EFFICIENCY ANALYST-ONLINE MARKETING COORDINATOR Work Phone: [facility] 05-18-2024 08:30-0400 Body weight 93.89 kg Emir Sibleychter EFFICIENCY ANALYST-ONLINE MARKETING COORDINATOR Work Phone: [facility] [facility] 05-18-2024 08:30-0400 Diastolic blood pressure 72 mm[Hg] Emir Duggan EFFICIENCY ANALYST-ONLINE MARKETING COORDINATOR Work Phone: [facility] [facility] 05-18-2024 08:30-0400 Heart rate 62 /min Emir Duggan EFFICIENCY ANALYST-ONLINE MARKETING COORDINATOR Work Phone: [facility] [facility] 05-18-2024 08:30-0400 Respiratory rate 18 /min Emir Duggan EFFICIENCY ANALYST-ONLINE MARKETING COORDINATOR Work Phone: [facility] [employer] [facility] 05-18-2024 08:30-0400 SaO2% (BldA) [Mass fraction] 97 % Emir Duggan EFFICIENCY ANALYST-ONLINE MARKETING COORDINATOR Work Phone: [facility] [employer] [facility] 05-18-2024 08:30-0400 Systolic blood pressure 124 mm[Hg] Emir Duggan EFFICIENCY ANALYST-ONLINE MARKETING COORDINATOR Work Phone: [facility] 04-11-2024 08:29-0400 Body mass index (BMI) [Ratio] 29.29 kg/m2 Scottie Plata MD Work Phone: [facility] 04-11-2024 08:29-0400 Body temperature 97.5 [degF] Scottie Plata MD Work Phone: [facility] [employer] [facility] 04-11-2024 08:29-0400 Body weight 95.25 kg Scottie Plata MD Work Phone: [facility] [employer] [facility] 04-11-2024 08:29-0400 Diastolic blood pressure 74 mm[Hg] Scottie Plata MD Work Phone: [facility] [employer] [facility] 04-11-2024 08:29-0400 Heart rate 76 /min Scottie Plata MD Work Phone: [facility] 04-11-2024 08:29-0400 Respiratory rate 18 /min Scottie Plata MD Work Phone: [facility] 04-11-2024 08:29-0400 SaO2% (BldA) [Mass fraction] 97 % Scottie Plata MD Work Phone: [facility] 04-11-2024 08:29-0400 Systolic blood pressure 126 mm[Hg] Scottie Plata MD Work Phone: [facility] 03-02-2024 08:54-0400 Body mass index (BMI) [Ratio] 29.57 kg/m2 Emir Schlachter EFFICIENCY ANALYST-ONLINE MARKETING COORDINATOR Work Phone: [facility] 03-02-2024 08:54-0400 Body weight 96.16 kg Emir Schlachter EFFICIENCY ANALYST-ONLINE MARKETING COORDINATOR Work Phone: [facility] 03-02-2024 08:54-0400 Diastolic blood pressure 74 mm[Hg] Emir Schlachter EFFICIENCY ANALYST-ONLINE MARKETING COORDINATOR Work Phone: [facility] 03-02-2024 08:54-0400 Heart rate 88 /min Emir Schlachter EFFICIENCY ANALYST-ONLINE MARKETING COORDINATOR Work Phone: [facility] 03-02-2024 08:54-0400 Respiratory rate 18 /min Emir Schlachter EFFICIENCY ANALYST-ONLINE MARKETING COORDINATOR Work Phone: [facility] 03-02-2024 08:54-0400 Systolic blood pressure 124 mm[Hg] Emir Schlachter EFFICIENCY ANALYST-ONLINE MARKETING COORDINATOR Work Phone: [facility] 12-17-2023 09:12-0400 Body height 180.[address] [facility] 12-17-2023 09:12-0400 Body mass index (BMI) [Ratio] 29.5 kg/m2 [facility] 12-17-2023 09:12-0400 Body temperature 96.7 [degF] [facility] 12-17-2023 09:12-0400 Body weight 96.[address] [facility] 12-17-2023 09:12-0400 Diastolic blood pressure 80 mm[Hg] [facility] 12-17-2023 09:12-0400 Heart rate 73 /min [facility] 12-17-2023 09:12-0400 Respiratory rate 18 /min [facility] 12-17-2023 09:12-0400 SaO2% (BldA) [Mass fraction] 93 % [facility] 12-17-2023 09:12-0400 Systolic blood pressure 120 mm[Hg] [facility] 10-28-2023 10:47-0500 Body mass index (BMI) [Ratio] 29.85 kg/m2 Emir Duggan EFFICIENCY ANALYST-ONLINE MARKETING COORDINATOR Work Phone: [facility] [employer] [facility] 10-28-2023 10:47-0500 Body weight 97.07 kg Emir Duggan EFFICIENCY ANALYST-ONLINE MARKETING COORDINATOR Work Phone: [facility] [employer] [facility] 10-28-2023 10:47-0500 Diastolic blood pressure 78 mm[Hg] Emir Duggan EFFICIENCY ANALYST-ONLINE MARKETING COORDINATOR Work Phone: [facility] [employer] 10-28-2023 10:47-0500 Heart rate 90 /min Emir Duggan EFFICIENCY ANALYST-ONLINE MARKETING COORDINATOR Work Phone: [facility] [employer] 10-28-2023 10:47-0500 Respiratory rate 18 /min Emir Avilaer EFFICIENCY ANALYST-ONLINE MARKETING COORDINATOR [facility] 10-28-2023 10:47-0500 SaO2% (BldA) [Mass fraction] 98 % Emir Duggan EFFICIENCY ANALYST-ONLINE MARKETING COORDINATOR Work Phone: [facility] [employer] 10-28-2023 10:47-0500 Systolic blood pressure 126 mm[Hg] Emir Duggan EFFICIENCY ANALYST-ONLINE MARKETING COORDINATOR [facility] Encounter Date Encounter Type Care Provider Facility Start: 04-01-2025 End: 04-01-2025 Bamboo flowsheet Torrey Rocky DO Work Phone: [facility] Start: 04-01-2025 End: 04-01-2025 Bamboo flowsheet Torrey Rocky DO Work Phone: [facility] Start: 03-06-2025 End: 03-06-2025 Orders Only Emir Duggan EFFICIENCY ANALYST-ONLINE MARKETING COORDINATOR Work Phone: [facility] Start: 02-19-2025 End: 02-19-2025 Office outpatient visit 15 minutes Emir Duggan EFFICIENCY ANALYST-ONLINE MARKETING COORDINATOR Work Phone: [facility] Comment on above: Acute non-recurrent maxillary sinusitis (Primary Dx); Acute bronchitis, unspecified organism Start: 02-19-2025 End: 02-19-2025 ambulatory [facility] Start: 02-15-2025 End: 02-15-2025 Orders Only Asuncion Auguste EFFICIENCY ANALYST-ONLINE MARKETING COORDINATOR Work Phone: [facility] Comment on above: 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 Start: 01-07-2025 End: 01-07-2025 Office outpatient new 30 minutes Leonard Skaggs DO Work Phone: [facility] Comment on above: Raynaud's disease wi thout gangrene Start: 01-07-2025 End: 01-07-2025 ambulatory LEONARD M [facility] Start: 12-19-2024 End: 12-19-2024 ambulatory [facility] Start: 12-14-2024 End: 12-14-2024 Orders Only Emir Duggan EFFICIENCY ANALYST-ONLINE MARKETING COORDINATOR Work Phone: [facility] Start: 11-28-2024 End: 11-28-2024 ambulatory [facility] Start: 11-23-2024 End: 11-23-2024 Patient encounter status Emir Duggan EFFICIENCY ANALYST-ONLINE MARKETING COORDINATOR Work Phone: [facility] Start: 11-23-2024 End: 11-23-2024 Periodic preventive med est patient 40-64yrs Emir Duggan EFFICIENCY ANALYST-ONLINE MARKETING COORDINATOR [facility] Comment on above: Wellness examination (Primary Dx); Seasonal allergies; Anxiety; Degeneration of intervertebral disc of lumbar region, unspecified whether pain present; Fibromyalgia; Generalized anxiety disorder; Attention deficit hyperactivity disorder (ADHD), predominantly inattentive type; Facial injury, initial encounter; Raynaud's disease without gangrene Start: 11-23-2024 End: 11-23-2024 ambulatory [facility] Start: 11-23-2024 Encounter for genera l adult medical examination without abnormal findings [facility] Start: 11-20-2024 End: 11-20-2024 Telephone encounter Emir Schbenito EFFICIENCY ANALYST-ONLINE MARKETING COORDINATOR Work Phone: [facility] Start: 11-19-2024 End: 11-19-2024 Office outpatient visit 15 minutes Emir Duggan EFFICIENCY ANALYST-ONLINE MARKETING COORDINATOR Work Phone: [facility] Comment on above: Acute bronchitis, un specified organism (Primary Dx) Start: 11-19-2024 End: 11-19-2024 ambulatory [facility] Start: 10-31-2024 End: 10-31-2024 ambulatory [facility] Start: 10-03-2024 End: 10-03-2024 ambulatory [facility] Start: 08-09-2024 End: 08-09-2024 ambulatory [facility] Start: 08-02-2024 End: 08-02-2024 Office outpatient visit 15 minutes Emir Urban EFFICIENCY ANALYST-ONLINE MARKETING COORDINATOR Work Phone: [facility] Comment on above: Acute non-recurrent maxillary sinusitis (Primary Dx); Change in hearing, bilateral Start: 08-02-2024 End: 08-02-2024 ambulatory [facility] Start: 06-06-2024 End: 06-06-2024 ambulatory [facility] Start: 05-18-2024 End: 05-18-2024 Office outpatient visit [facility] EFFICIENCY ANALYST-ONLINE MARKETING COORDINATOR Work Phone: [facility] Comment on above: Fibromyalgia (Primar y Dx); Anxiety; Degenerative disc disease, lumbar; Attention deficit hyperactivity disorder (ADHD), predominantly inattentive type; Generalized anxiety disorder Start: 05-18-2024 End: 05-18-2024 ambulatory [facility] Start: 04-11-2024 End: 04-11-2024 Office outpatient visit 15 minutes Scottie Plata MD Work Phone: [facility] Comment on above: Acute bronchitis, un specified organism (Primary Dx); Other acute sinusitis, recurrence not specified Start: 04-11-2024 End: 04-11-2024 ambulatory SCOTTIE PLATA [facility] Start: 03-29-2024 End: 03-29-2024 ambulatory [facility] Start: 03-28-2024 End: 03-28-2024 ambulatory TORREY HIDALGO Not Available Start: 03-12-2024 End: 03-12-2024 ambulatory [facility] Start: 03-12-2024 Encounter for genera l adult medical examination without abnormal findings [facility] Start: 03-02-2024 End: 03-02-2024 Office outpatient visit 15 minutes [facility] [place] EFFICIENCY ANALYST-ONLINE MARKETING COORDINATOR Work Phone: [facility] Comment on above: Blister of foot, uns pecified laterality, initial encounter (Primary Dx) Start: 03-02-2024 End: 03-02-2024 ambulatory [facility] Start: 02-09-2024 End: 02-09-2024 ambulatory [facility] Start: 12-30-2023 End: 12-30-2023 Orders Only Asuncion Auguste EFFICIENCY ANALYST-ONLINE MARKETING COORDINATOR Work Phone: [facility] Comment on above: Generalized anxiety disorder Start: 12-17-2023 End: 12-17-2023 ambulatory [facility] Work Phone: Start: 12-17-2023 End: 12-17-2023 Patient encounter procedure [facility] Work Phone: Start: 12-16-2023 End: 12-16-2023 Office outpatient visit 15 minutes Esmer ABDALLA Work Phone: [facility] Comment on above: Fibromyalgia Start: 10-28-2023 End: 10-28-2023 Patient encounter status Emir Duggan EFFICIENCY ANALYST-ONLINE MARKETING COORDINATOR Work Phone: [employer] Work Phone: Start: 10-28-2023 End: 10-28-2023 Periodic preventive med est patient 40-64yrs Emir Duggan EFFICIENCY ANALYST-ONLINE MARKETING COORDINATOR Work Phone: [facility] Comment on above: Wellness examination (Primary Dx); Fibromyalgia; Degenerative disc disease, lumbar; Anxiety Start: 10-03-2023 End: 10-03-2023 Office outpatient visit 15 minutes Emir Duggan EFFICIENCY ANALYST-ONLINE MARKETING COORDINATOR Work Phone: [facility] Comment on above: Acute non-recurrent maxillary sinusitis (Primary Dx) Start: 09-15-2023 Orders Only Scottie otto MD Work Phone: [facility] Start: 01-09-2022 End: 01-10-[address] TORREY HIDALGO Facility:[facility] Start: 12-05-2021 End: 12-06-[address] TORREY HIDALGO Facility:[facility] Start: 11-30-2021 End: 11-30-[address] TORREY HIDALGO Facility:[facility] Start: 04-07-2020 End: 03-18-2021 ambulatory [place] Kaplan Facility:[facility] Procedures Date Procedure Procedure Detail Performing Clinician Start: 02-19-2025 Adult depression scr eening assessment Emir Duggan EFFICIENCY ANALYST-ONLINE MARKETING COORDINATOR Work Phone: Start: 11-23-2024 Adult depression scr eening assessment Emir Duggan EFFICIENCY ANALYST-ONLINE MARKETING COORDINATOR Work Phone: Start: 11-19-2024 Adult depression scr eening assessment Emir Duggan EFFICIENCY ANALYST-ONLINE MARKETING COORDINATOR Work Phone: Start: 05-18-2024 Follow-up visit Follow-up EMIR DUGGAN Start: 03-28-2024 Microscopic observat ion [Identifier] in Cervix by Cyto stain Torrey Hidalgo DO Work Phone: Start: 12-17-2023 Quick Strep (POC) Start: 11-08-2022 Adult depression scr eening assessment Scottie Plata MD Work Phone: Start: 11-20-2019 Mammography Torrey fischer DO Work Phone: Plan of Treatment Date Care Activity Detail Author Start: 03-11-2033 DTaP,Tdap and Td Vaccines (3 - Td or Tdap) DTaP,Tdap and Td Vaccines (3 - Td or Tdap) [facility] Start: 03-23-2028 Screening for malign ant neoplasm of cervix [facility] Start: 03-28-2027 Screening for malign ant neoplasm of cervix Pap Smear [facility] Start: 02-19-2026 Adult BMI Follow Up Plan Adult BMI Follow Up Plan [facility] Start: 02-19-2026 Adult BMI Screening Adult BMI Screen ing [facility] Start: 02-19-2026 Depression Screening Depression Scre ening [facility] Start: 02-19-2026 Tobacco Screening Tobacco Screening [facility] Start: 01-21-2026 Tobacco Screening Tobacco Screening [facility] Start: 01-07-2026 Adult BMI Screening Adult BMI Screen ing [facility] Start: 01-07-2026 Tobacco Screening Tobacco Screening [facility] Start: 11-29-2025 Tobacco Screening Tobacco Screening [facility] Start: 11-29-2025 End: 11-29-2025 Patient encounter procedure 11/29/2025 11:00 AM EDT Office Visit [facility] [address] [place] [phone] Emir Duggan APRN-ONLINE MARKETING COORDINATOR [address] [place] [address] [facility] Start: 11-23-2025 Adult BMI Follow Up Plan Adult BMI Follow Up Plan [facility] Start: 11-23-2025 Adult BMI Screening Adult BMI Screen ing [facility] Start: 11-23-2025 Depression Screening Depression Scre ening [facility] Start: 11-23-2025 Tobacco Screening Tobacco Screening [facility] Start: 11-19-2025 Adult BMI Screening Adult BMI Screen ing [facility] Start: 11-19-2025 Depression Screening Depression Scre ening [facility] Start: 11-19-2025 Tobacco Screening Tobacco Screening [facility] Start: 06-07-2025 Tobacco Screening Tobacco Screening [facility] Start: 05-31-2025 End: 05-31-2025 Patient encounter procedure 05/31/2025 11:00 AM EDT Office Visit [facility] [address] [place] [address] Emir Duggan, EFFICIENCY ANALYSTBRIGHAM [facility] [address] [place] [address] [facility] Start: 05-20-2025 Influenza vaccination [facility] Start: 05-18-2025 Adult BMI Screening Adult BMI Screen ing [facility] Start: 05-18-2025 Tobacco Screening Tobacco Screening [facility] Start: 04-11-2025 Adult BMI Screening Adult BMI Screen ing [facility] Start: 04-11-2025 Tobacco Screening Tobacco Screening [facility] Start: 04-01-2025 End: 04-01-2025 Patient encounter procedure 04/01/2025 4:00 PM EDT Office Visit [facility] [address] [place] [phone] Torrey Hidalgo DO [address] [place] [address] Arrived [facility] Comment on above: Arrived Start: 03-12-2025 End: 11-23-2025 CBC W Auto Differential panel - Blood CBC auto differential Lab Routine Wellness examination Expected: 03/12/2025, Expires: 11/23/2025 [facility] Comment on above: Expected: 03/12/2025 , Expires: 11/23/2025 Start: 03-12-2025 End: 11-23-2025 Comprehensive metabolic 2000 panel - Serum or Plasma Comprehensive metabolic panel Lab Routine Wellness examination Expected: 03/12/2025, Expires: 11/23/2025 [facility] Comment on above: Expected: 03/12/2025 , Expires: 11/23/2025 Start: 03-12-2025 End: 11-23-2025 Lipid 1996 panel - Serum or Plasma Lipid profile Lab Routine Wellness examination Expected: 03/12/2025, Expires: 11/23/2025 [facility] Comment on above: Expected: 03/12/2025 , Expires: 11/23/2025 Start: 03-02-2025 Adult BMI Screening Adult BMI Screen ing [facility] Start: 03-02-2025 Tobacco Screening Tobacco Screening [facility] Start: 02-01-2025 End: 02-01-2025 Patient encounter procedure [facility] Start: 01-07-2025 End: 01-07-2025 Patient encounter procedure 01/07/2025 3:30 PM EDT Office Visit [facility] [address] [place] [address] Leonard Skaggs, DO [address] [place] [address] [place] [address] [facility] Start: 01-07-2025 End: 07-09-2026 US.doppler Extremity arteries - bilateral for physiologic artery study [facility] Work Phone: Comment on above: Expected: 01/07/2025 , Expires: 07/09/2026 Expected: 01/07/2025 , Expires: 01/07/2026 Start: 12-15-2024 Tobacco Screening Tobacco Screening [facility] Start: 11-23-2024 End: 11-23-2025 XR Nasal bones 3 Views X-ray nasal bones complete minimum 3 views Imaging Routine Facial injury, initial encounter Expected: 11/23/2024, Expires: 11/23/2025 Lisa Work Phone: Comment on above: Expected: 11/23/2024 , Expires: 11/23/2025 Start: 11-23-2024 End: 11-23-2024 Patient encounter procedure 11/23/2024 10:30 AM EST [facility] [address] [place] [phone] Emir Duggan, EFFICIENCY ANALYST-ONLINE MARKETING COORDINATOR [address] [place] [address] [facility] Start: 11-16-2024 Tobacco Screening Tobacco Screening [facility] Start: 11-02-2024 End: 11-02-2024 Patient encounter procedure 11/02/2024 8:30 AM EST Office Visit [facility] [address] [place] [phone] Emir Duggan, EFFICIENCY ANALYST-ONLINE MARKETING COORDINATOR [address] [place] [address] [facility] Start: 10-28-2024 Adult BMI Follow Up Plan Adult BMI Follow Up Plan [facility] Start: 10-28-2024 Adult BMI Screening Adult BMI Screen ing [facility] Start: 10-28-2024 Tobacco Screening Tobacco Screening [facility] Start: 10-03-2024 Adult BMI Follow Up Plan Adult BMI Follow Up Plan [facility] Start: 09-05-2024 Tobacco Screening Tobacco Screening [facility] Start: 08-19-2024 Adult BMI Follow Up Plan Adult BMI Follow Up Plan [facility] Start: 08-19-2024 Adult BMI Screening Adult BMI Screen ing [facility] Start: 05-20-2024 COVID-19 Vaccine () COVID-19 Vaccine () [facility] Start: 05-20-2024 COVID-19 Vaccine ( season) COVID-19 Vaccine () [facility] Start: 05-20-2024 Influenza vaccination Influenza Vacc ine [facility] Start: 05-04-2024 End: 05-04-2024 Patient encounter procedure 05/04/2024 8:30 AM EDT Office Visit [facility] [address] [place] [phone] Emir Duggan, EFFICIENCY ANALYST-ONLINE MARKETING COORDINATOR [address] [place], [place] [phone] [facility] Start: 03-12-2024 End: 10-27-2024 CBC W Auto Differential panel - Blood CBC auto differential Lab Routine Wellness examination Expected: 03/12/2024, Expires: 10/27/2024 [facility] Work Phone: Comment on above: Expected: 03/12/2024 , Expires: 10/27/2024 Start: 03-12-2024 End: 10-27-2024 Comprehensive metabolic 2000 panel - Serum or Plasma Comprehensive metabolic panel Lab Routine Wellness examination Expected: 03/12/2024, Expires: 10/27/2024 [facility] Comment on above: Expected: 03/12/2024 , Expires: 10/27/2024 Start: 03-12-2024 End: 10-27-2024 Lipid 1996 panel - Serum or Plasma Lipid profile Lab Routine Wellness examination Expected: 03/12/2024, Expires: 10/27/2024 [facility] Comment on above: Expected: 03/12/2024 , Expires: 10/27/2024 Start: 12-16-2023 End: 12-16-2023 Patient encounter procedure 12/16/2023 9:00 AM EDT Office Visit [facility] [address] [place] [phone] [place] [address] [place] [phone] [facility] Start: 11-08-2023 Depression Screening Depression Scre sanya [facility] Start: 10-28-2023 End: 10-28-2023 Patient encounter procedure 10/28/2023 11:00 AM EST Office Visit [facility] [address] [place] [address] Emir Duggan, GEOFFREY-ONLINE MARKETING COORDINATOR [address] [place] [address] [facility] Start: 09-27-2023 End: 09-27-2023 Patient encounter procedure 09/27/2023 8:45 AM EST Office Visit [facility] [address] [place] [phone] [place] [address] [place] [phone] [facility] Start: 05-20-2023 COVID-19 Vaccine ( season) COVID-19 Vaccine ( season) [facility] Start: 05-20-2023 Influenza vaccination Influenza Vacc ine [facility] Start: 2022 Screening for malign ant neoplasm of breast Mammogram [facility] Immunizations Immunization Date Immunization Notes Care Provider Fa cility 06-30-2022 Influenza, injectabl e, Madin [place] Canine Kidney, preservative free, quadrivalent Scottie Plata MD Work Phone: [facility] 06-30-2022 influenza virus vaccine, unspecified formulation Scottie Plata MD Work Phone: [facility] 09-03-2021 influenza, injectabl e, quadrivalent, preservative free Scottie Plata MD Work Phone: [facility] 01-05-2021 COVID-19, mRNA, LNP- S, PF, 100mcg/0.5mL Dose Scottie Plata MD Work Phone: [facility] 06-21-2020 Influenza, injectabl e, Madin Shikha Canine Kidney, preservative free, quadrivalent Scottie Plata MD Work Phone: [facility] 04-25-2020 measles, mumps and rubella virus vaccine Scottie Plata MD Work Phone: [facility] 04-11-2011 tetanus toxoid, redu ivonne diphtheria toxoid, and acellular pertussis vaccine, adsorbed Scottie Plata MD Work Phone: [facility] Payers Date Payer Category Payer Private Health Insurance [employer] [id number] 2022 [facility] er [id number] 2022 [facility] Managed Care - PPO ANTHEM [id number] 2022 Unknown [id number] 2020 [employer] [facility] [employer] [id number] 2020 Unknown [id number] 2020 Unknown [id number] 2020 Medicaid [employer] [id number] 2020-Present [phone] [address] [place] [address] [id number] 1982 Unknown [id number] 2.16.840.1.350612.3.579.2. 593 1982 Unknown [id number] 2.16840.1.570738.3.579.2. 593 1982 Unknown [id number] 2.16840.1.581189.3.579.2. 593 1982 Unknown [id number] 2.16840.1.618861.3.579.2. 1259 1982 Unknown [id number] 2.16840.1.160711.3.579.2. 718 1982 Unknown [id number] 2.840.1.217908.3.579.2. 1285 1982 Unknown [id number] 2.840.1.116606.3.579.2. 1285 1982 Unknown [id number] 2.0.1.705680.3.579.2. 1285 1982 Unknown [id number] 2.0.1.413605.3.579.2. 1285 1982 Unknown [id number] 2840.1.540362.3.579.2. 1285 1982 Unknown [id number] 2.840.1.276367.3.579.2. 1285 1982 Unknown [id number] 2840.1.459643.3.579.2. 1285 1982 Unknown [id number] 2.840.1.979906.3.579.2. 1285 1982 Unknown [id number] 2840.1.303670.3.579.2. 1285 1982 Unknown [id number] 2.840.1.966421.3.579.2. 1285 1982 Unknown [id number] 2.840.1.690746.3.579.2. 1285 1982 Unknown [id number] 1980 Unknown [id number] 1982 Unknown [id number] 1982 Unknown [id number] 1982 Unknown [id number] 1982 Unknown [id number] 1959 Unknown [id number] 1959 Unknown [id number] Social History Date Type Detail Facility Tobacco smoking stat [facility] Unknown if ever smoked [facility] Start: 1980 Sex Assigned At Female F [facility] Start: 02-05-2022 End: 03-09-2023 Tobacco smoking status UTIS Ex-smoker [facility] History of tobacco use Current smoker [facility] History of tobacco use Cigarette Smoker [facility] [place] History of tobacco use Cigar Smoker [facility] Start: 02-05-2022 End: 03-09-2023 Tobacco use and exposure Smokeless tobacco non-user [facility] Start: 09-05-2023 End: 03-28-2024 Alcohol intake Current drinker of alcohol (finding) [facility] Start: 05-05-2023 End: 09-05-2023 Alcohol intake [facility] Start: 05-05-2023 End: 09-05-2023 Tobacco use panel [facility] How hard is it for y ou to pay for the very basics like food, housing, medical care, and heating Not very hard [facility] Adolescent depressio n screening assessment 0 [facility] Start: 06-22-2022 Education 17 [facility] Start: 05-10-2017 Alcohol Comment occasional [facility] Start: 1980 Sex Assigned At Not on file [facility] [place] [facility] Start: 04-24-2015 Sex Female (finding) [facility] Start: 03-09-2023 Alcohol Comment hard liquor 1- 2 drinks/monthly or less. caffeine: >4 cups/day [facility] Clinical Notes 10-03-2023 to 02-19-2025 Emir Duggan, EFFICIENCY ANALYST-[facility] - 02/19/2025 11:15 AM Lizz Skaggs, - 01/07/2025 3:30 PM Lupe Duggan, EFFICIENCY ANALYST-[facility] - 11/23/2024 10:30 AM Naveed Duggan, [facility] - 11/19/2024 2:15 PM EST Note Date & Type Note Facility 02-19-2025 History of Present illness Narrative Images from the original note were not included. [address] [facility] [id number] SUBJECTIVE: Patient ID: Melany Andrade is a 44 y.o. female. Patient presents to the office with complaints of cough, congestion and post nasal drip. Patient's son was sick as well. OTC medication is not helping Cough Associated symptoms include postnasal drip. Pertinent negatives include no chest pain, ear pain, fever, rash, sore throat or shortness of breath. Nasal Congestion Associated symptoms include congestion, coughing and sinus pressure. Pertinent negatives include no ear pain, neck pain, shortness of breath or sore throat. The following portions of the patient's history were reviewed and updated as appropriate: allergies, current medications, past family history, past medical history, past social history, past surgical history and problem list. REVIEW OF SYSTEMS: Review of Systems Constitutional: Negative for fatigue, fever and unexpected weight change. HENT: Positive for congestion, postnasal drip, sinus pressure and sinus pain. Negative for ear pain and sore throat. Eyes: Negative for photophobia, pain, discharge and visual disturbance. Respiratory: Positive for cough. Negative for shortness of breath. Cardiovascular: Negative for chest [...] The patient is not nervous/anxious. PHYSICAL EXAMINATION: Vitals: 02/19/25 1117 BP: 124/74 Pulse: 77 Resp: 18 Temp: 37.4 C (99.3 F) TempSrc: Tympanic SpO2: 97% Weight: 90.3 kg (199 lb) Physical Exam Constitutional: Appearance: She is well-developed. HENT: Head: Normocephalic and atraumatic. Right Ear: External ear normal. Left Ear: External ear normal. Nose: Congestion present. Eyes: Conjunctiva/sclera: Conjunctivae normal. Pupils: Pupils are equal, round, and reactive to light. Cardiovascular: Rate and Rhythm: Normal rate and regular rhythm. Heart sounds: Normal heart sounds. Pulmonary: Effort: Pulmonary effort is normal. Breath sounds: Normal breath sounds. Comments: Harsh cough Abdominal: General: Bowel sounds are normal. Musculoskeletal: Cervical back: Normal range of motion. Skin: General: Skin is warm and dry. Neurological: Mental Status: She is alert and oriented to person, place, and time. Psychiatric: Mood and Affect: Mood normal. ASSESSMENT/PLAN: Melany was seen today for cough and nasal congestion. Diagnoses and all orders for this visit: Acute non-recurrent maxillary sinusitis Acute bronchitis, unspecified organism Other orders - cefDINIR (OMNICEF) 300 mg capsule; Take 1 capsule (300 mg total) by mouth in the morning and 1 capsule (300 mg total) before bedtime. Do all this for 10 days. - methylPREDNISolone (MEDROL, KADY,) 4 mg tablet; Take 1 tablet (4 mg total) by mouth in the morning. follow package directions. - benzonatate (TESSALON PERLES) 200 mg capsule; Take 1 capsule (200 mg total) by mouth 3 (three) times a day as needed for cough. Follow-up: Cefdinir 300mg bid for ten days Medrol dose kady Tessalon perles as needed Follow up with routine appointment or as needed Patient noted to have elevated BMI and the following intervention(s) were applied: encouragement to exercise. JEAN Davalos 02/19/25 1234 documented in this encounter [employer] 01-07-2025 History of Present illness Narrative Images from the original note were not included. CC: Chief Complaint Patient presents with Follow-up Circulatory Problem New patient- c/o hands and feet being cold and discolored at times 44 y.o. female w/ h/o ADHD, fibromyalgia and c/o bilat hands and feet cold w/ skin discoloration. [employer] - 01/07/25: c/o hands and feet intermittently turning purple and feel very cold to the touch. Denies any significant pain. +edema in bilat hands, feet and legs intermittently. +spider veins in the thighs. +easy bruising. Wore thigh high compression stockings during . -2 pregnancies; 1 miscarriage. +gestational DM. No significant issue w/ delivery. -Discussed referral to pelvic floor PT due to urinary incontinence. Denies pain during and/or after intercourse. Not on any ADHD stimulant meds. Caffeine - 2-3 cups coffee/day. +fibromyalgia. Mother w/ autoimmune disease but unknown type Patient Active Problem List Diagnosis Acute left otitis media Endometriosis Generalized anxiety disorder Fibromyalgia Degenerative disc disease, lumbar Attention deficit hyperactivity disorder (ADHD), predominantly inattentive type BP 119/79 Pulse 74 Wt 94.8 kg (209 lb) LMP 10/04/2017 (Approximate) BMI 29.99 kg/m Past Medical History: Diagnosis Date Asthma Endometriosis Fibromyalgia 07/2021 Past Surgical History: Procedure Laterality Date DENTAL SURGERY 10/2021 dental implant HYSTERECTOMY 10/20/2018 PARTIAL LAPAROSCOPY LASER ABLATION OF THE CERVIX NASAL SEPTUM SURGERY SINUS SURGERY TONSILLECTOMY TUBAL LIGATION ROS: Review of Systems Respiratory: Negative for shortness of breath. +exercise induced SOB Cardiovascular: Positive for leg swelling. Negative for chest pain. Genitourinary: Negative for pelvic pain and vaginal pain. Skin: Negative for rash and wound. [] Not yet started - colon cancer screening [x] Up to date w/ mammogram [x] Up to date w/ global compensation manager cancer screening Former smoker - quit in 20s History of: no h/o CVA no h/o: DVT, PE no h/o: UT, CAD, HTN no h/o: PAD, PVD, claudication no h/o: dilated LE veins/varicose veins no h/o: DM no h/o: cancer Physical Exam: Physical Exam Vitals and nursing note reviewed. Constitutional: Appearance: Normal appearance. HENT: Head: Normocephalic and atraumatic. Pulmonary: Effort: Pulmonary effort is normal. Musculoskeletal: General: Normal range of motion. Comments: Moving all ext equally Skin: General: Skin is warm and dry. Neurological: General: No focal deficit present. Mental Status: She is alert and oriented to person, place, and time. Psychiatric: Attention and Perception: Attention normal. Mood and Affect: Mood normal. Speech: Speech normal. Behavior: Behavior is cooperative. Testing Reviewed: CBC with Differential: Lab Results Component Value Date WBC 6.8 03/12/2024 HGB 12.7 03/12/2024 HCT 37.2 03/12/2024 PLT 298 03/12/2024 MCV 88 03/12/2024 MCH 30.1 03/12/2024 MCHC 34.2 03/12/2024 RDW 13.6 03/12/2024 BMP: Lab Results Component Value Date SODIUM 140 03/12/2024 K 4.0 03/12/2024 CL 101 03/12/2024 CO2 32 03/12/2024 BUN 18 03/12/2024 CREATININE 0.85 03/12/2024 EGFR 88 03/12/2024 GLU 85 03/12/2024 Assessment: Encounter Diagnosis Name Primary? Raynaud's disease without gangrene Melany was seen today for follow-up and circulatory problem. Diagnoses and all orders for this visit: Raynaud's disease without gangrene - [facility] [place], [place] Plan of care: Please note that total time spent was 30 minutes: Including but not limited to: Preparing to see the patient (e.g., review of tests) Obtaining and/or reviewing separately obtained history Performing a medically appropriate examination and evaluation Counseling and educating the patient/family/caregiver Ordering medications, tests, or procedures Documenting visit details Melany was seen today for follow-up and circulatory problem. Diagnoses and all orders for this visit: Raynaud's [facility] without gangrene [facility] [place], [place] Melany Andrade is a 44 y.o. White or female with h/o ADHD, fibromyalgia and c/o bilat hands and feet cold w/ skin discoloration. Raynaud's Syndrome (Primary Raynaud's): Symptoms of bilat cold hands/feet w/ skin color changes is consistent with Raynaud's. UE/LE SELINA/PVR w/ digit PPG waveforms ordered to rule out arterial etiology of symptoms. Management: Conservative measures: Avoid triggers: Minimize cold exposure and changing between temperatures quickly. Wear layers, gloves, mittens, socks etc as needed. Avoid tobacco, caffeine, medications that cause vasoconstriction (cold medications, diet pills, ADHD meds etc) Identify emotional stressors/triggers and avoid as able Active rewarming during acute flare: warm water, gloves, mittens, socks etc Exercise regularly If symptoms persistent/poorly controlled w/ conservative measures can further discuss additional work-up for secondary causes of Raynaud's Disease (rheumatoid arthritis, lupus, scleroderma) vs initiation medications (CCK, vasodilators) Return to clinic after UE/LE SELINA/PVR w/ digit PPG waveforms completed to review results and discuss further plan of care. SIGNATURE: Leonard Skaggs DO CC: Emir Duggan APRN-Emir Bach APR* documented in this encounter [facility] 11-23-2024 History of Present illness Narrative Images from the original note were not included. [id number] [facility] [id number] Subjective: Melany Andrade is a 44 y.o. female who presents for an Annual Wellness exam. Patient presents to the office for routine wellness. She is feeling improved with sinusitis. She is due for labs in February. She [facility] her [facility]. Does see her counselor but now interested in pursing medication. She is going to look into pelvic floor therapy. She has concerns that her finger tips turn white and feet and hands are cold. Did run into door and had injury to bridge of nose. Bruising has improved. Did offer x-ray. The following portions of the patient's history were reviewed and updated as appropriate: medications, allergies, past medical history, past surgical history, social history, family history and immunization history Vitals: Vitals: 11/23/24 1035 BP: 122/78 Pulse: 80 Resp: 18 SpO2: 97% Weight: 98 kg (216 lb) Height: 177.8 cm (5' 10 ) History: Patient Active Problem List Diagnosis Date [...] photophobia, pain, discharge and visual disturbance. Respiratory: Positive for cough. Negative for shortness of breath. Cardiovascular: Negative for chest pain, palpitations and leg swelling. Gastrointestinal: Negative for abdominal pain, diarrhea, nausea and vomiting. Endocrine: Negative for polydipsia, polyphagia and polyuria. Genitourinary: Negative for difficulty urinating, frequency, hematuria and urgency. Musculoskeletal: Negative for arthralgias, gait problem, joint swelling and neck pain. Skin: Positive for wound. Negative for pallor and rash. Neurological: Negative for dizziness, weakness, light-headedness and numbness. Psychiatric/Behavioral: Negative for sleep disturbance. The patient is not nervous/anxious. Objective: BP 122/78 Pulse 80 Resp 18 Ht 177.8 cm (5' 10 ) Wt 98 kg (216 lb) LMP 10/04/2017 (Approximate) SpO2 97% BMI 30.99 kg/m Physical Exam Constitutional: Appearance: She is well-developed. HENT: Head: Normocephalic and atraumatic. Right Ear: Tympanic membrane, ear canal and external ear normal. Left Ear: Tympanic membrane, ear canal and external ear normal. Nose: Signs of injury and nasal tenderness present. Comments: Bruise on nasal bridge. Eyes: Conjunctiva/sclera: Conjunctivae normal. Pupils: Pupils are equal, round, and reactive to light. Cardiovascular: Rate and Rhythm: Normal rate and regular rhythm. Heart sounds: Normal heart sounds. Pulmonary: Effort: Pulmonary effort is normal. Breath sounds: Normal breath sounds. Musculoskeletal: Cervical back: Normal range of motion. Skin: General: Skin is warm and dry. Neurological: Mental Status: She is alert and oriented to person, place, and time. Psychiatric: Mood and Affect: Mood normal. Assessment/Plan: Melany was seen today for annual exam. Diagnoses and all orders for this visit: Wellness examination - CBC auto differential; Future - Comprehensive metabolic panel; Future - Lipid profile; Future Seasonal allergies - loratadine-pseudoephedrine (LORATADINE-D) 10-240 mg per 24 hr tablet; Take 1 tablet by mouth in the morning. Anxiety Degeneration of intervertebral disc of lumbar region, unspecified whether pain present Fibromyalgia Generalized anxiety disorder Attention deficit hyperactivity disorder (ADHD), predominantly inattentive type Facial injury, initial encounter - X-ray nasal bones complete minimum 3 views; Future Raynaud's disease without gangrene - [facility] [place], [place]; Future Plan Outpatient Medications Prior to Visit Medication Sig Dispense Refill albuterol (PROVENTIL HFA;VENTOLIN HFA) 90 mcg/actuation inhaler Inhale 2 puffs every 6 (six) hours as needed for wheezing. 18 g 11 benzonatate (TESSALON PERLES) 200 mg capsule Take 1 capsule (200 mg total) by mouth 3 (three) times a day as needed for cough. 20 capsule 0 calcium carbonate/vitamin D3 (CALCIUM 600 + D,3, ORAL) Take by mouth. cefDINIR (OMNICEF) 300 mg capsule Take 1 capsule (300 mg total) by mouth in the morning and 1 capsule (300 mg total) before bedtime. Do all this for 10 days. 20 capsule 0 cholecalciferol (VITAMIN D3) 1,000 units tablet Take 1 tablet (1,000 Units total) by mouth in the morning. 90 tablet 3 DULoxetine (CYMBALTA) 60 mg capsule Take 2 capsules (120 mg total) by mouth in the morning. 180 capsule 3 methylPREDNISolone (MEDROL, KADY,) 4 mg tablet Take 1 tablet (4 mg total) by mouth in the morning. follow package directions. 21 tablet 0 eqxbfocdpenh-kyqgfuna-wvwkxy (CENTRUM SILVER) tablet Take 1 tablet by mouth in the morning. traZODone (DESYREL) 50 mg tablet Take 1 tablet (50 mg total) by mouth nightly as needed for sleep. 30 tablet 3 vitamin E 600 UNIT capsule Take 1 capsule (600 Units total) by mouth in the morning. loratadine-pseudoephedrine (LORATADINE-D) 10-240 mg per 24 hr tablet Take 1 tablet by mouth in the morning. 30 tablet 5 No facility-administered medications prior to visit. Follow Up: Cbc,cmp,lipid due in February X-ray nasal bones Referral vascular Will call with results Keep appointments with specialist Follow up in six months Patient noted to have elevated BMI and the following intervention(s) were applied: encouragement to exercise. JEAN Davalos 11/23/24 1115 [facility] Miscellaneous Notes Patient called and is wanting another day off work to rest. She also reports that she has severe head pain and pressure behind her right eye. She has tried Naproxen, extra strength Tylenol, Ibuprofen and a hot shower and the pain is still there. Do you have any suggestions? Can give off work. Can try flonase. Just started the medications yesterday I called patient back with your suggestion. She said she can't take medicine up her nose but thinks that she may be able to try a neti pot if you think that might help That's fine documented in this encounter [facility] 11-20-2024 Telephone encounter Note Patient called and is wanting another day off work to rest. She also reports that she has severe head pain and pressure behind her right eye. She has tried Naproxen, extra strength Tylenol, Ibuprofen and a hot shower and the pain is still there. Do you have any suggestions? [facility] 11-20-2024 Telephone encounter Note Can give off work. Can try flonase. Just started the medications yesterday [facility] 11-20-2024 Telephone encounter Note I called patient back with your suggestion. She said she can't take medicine up her nose but thinks that she may be able to try a neti pot if you think that might help [facility] 11-20-2024 Telephone encounter Note That's fine [facility] 11-19-2024 History of Present illness Narrative Images from the original note were not included. [address] [facility] [place] [id number] SUBJECTIVE: Patient ID: Melany Andrade is a 44 y.o. female. Patient presents to the office for complaints of cough and congestion. She has been sick since last week. Her sons were sick as well. She has a lot of stress going on right now as well. The following portions of the patient's history were reviewed and updated as appropriate: allergies, current medications, past family history, past medical history, past social history, past surgical history and problem list. REVIEW OF SYSTEMS: Review of Systems Constitutional: Negative for fatigue, fever and unexpected weight change. HENT: Positive for congestion and postnasal drip. Negative for ear pain, sinus pressure, sinus pain and sore throat. Eyes: Negative for photophobia, pain, discharge and visual disturbance. Respiratory: Positive for cough. Negative for shortness of breath. Cardiovascular: Negative for chest [...] The patient is not nervous/anxious. PHYSICAL EXAMINATION: Vitals: 11/19/24 1416 BP: 124/74 Pulse: 85 Resp: 18 Temp: 36.9 C (98.4 F) SpO2: 98% Weight: 98.4 kg (217 lb) Physical Exam Constitutional: Appearance: She is well-developed. HENT: Head: Normocephalic and atraumatic. Right Ear: External ear normal. Left Ear: External ear normal. Nose: Congestion present. Eyes: Conjunctiva/sclera: Conjunctivae normal. Pupils: Pupils are equal, round, and reactive to light. Cardiovascular: Rate and Rhythm: Normal rate and regular rhythm. Heart sounds: Normal heart sounds. Pulmonary: Effort: Pulmonary effort is normal. Breath sounds: Normal breath sounds. Comments: Harsh cough Musculoskeletal: Cervical back: Normal range of motion. Skin: General: Skin is warm and dry. Neurological: Mental Status: She is alert and oriented to person, place, and time. Psychiatric: Mood and Affect: Mood normal. ASSESSMENT/PLAN: Melany was seen today for sinusitis. Diagnoses and all orders for this visit: Acute bronchitis, unspecified organism Other orders - cefDINIR (OMNICEF) 300 mg capsule; Take 1 capsule (300 mg total) by mouth in the morning and 1 capsule (300 mg total) before bedtime. Do all this for 10 days. - methylPREDNISolone (MEDROL, KADY,) 4 mg tablet; Take 1 tablet (4 mg total) by mouth in the morning. follow package directions. - benzonatate (TESSALON PERLES) 200 mg capsule; Take 1 capsule (200 mg total) by mouth 3 (three) times a day as needed for cough. Follow-up: Cefdinir 300mg bid for ten days Medrol dose kady Tessalon perles as needed Keep follow up on Tuesday JEAN Davalos 11/19/24 1433 documented in this encounter [facility] 08-02-2024 History of Present illness Narrative Images from the original note were not included. [address] [facility] [id number] SUBJECTIVE: Patient ID: Melany Andrade is a 43 y.o. female. Patient presents to the office with complaints of cough, congestion, sinus pressure. Her son and were ill as well. She also has noticed her hearing as gotten worse over the years. noted it as well. Will refer to ENT Nasal Congestion Associated symptoms include congestion, coughing and sinus pressure. Pertinent negatives include no ear pain, neck pain, shortness of breath or sore throat. Sinusitis Associated symptoms include congestion, coughing and sinus pressure. Pertinent negatives include no ear pain, neck pain, shortness of breath or sore throat. Cough Associated symptoms include postnasal drip. Pertinent negatives include no chest pain, ear pain, fever, rash, sore throat or shortness of breath. The following portions of the patient's history were reviewed and updated as appropriate: allergies, current medications, past family history, past medical history, past social history, past surgical history and problem list. REVIEW OF SYSTEMS: Review of Systems Constitutional: Negative for fatigue, fever and unexpected weight change. HENT: Positive for congestion, postnasal drip, sinus pressure and sinus pain. Negative for ear pain and sore throat. Eyes: Negative for photophobia, pain, discharge and visual disturbance. Respiratory: Positive for cough. Negative for shortness of breath. Cardiovascular: Negative for chest [...] The patient is not nervous/anxious. PHYSICAL EXAMINATION: Vitals: 08/02/24 1344 BP: 122/70 Pulse: 78 Resp: 18 SpO2: 98% Weight: 96.6 kg (213 lb) Physical Exam Constitutional: Appearance: She is well-developed. HENT: Head: Normocephalic and atraumatic. Right Ear: External ear normal. Left Ear: External ear normal. Nose: Congestion present. Right Sinus: Maxillary sinus tenderness present. Left Sinus: Maxillary sinus tenderness present. Eyes: Conjunctiva/sclera: Conjunctivae normal. Pupils: Pupils are equal, round, and reactive to light. Cardiovascular: Rate and Rhythm: Normal rate and regular rhythm. Heart sounds: Normal heart sounds. Pulmonary: Effort: Pulmonary effort is normal. Breath sounds: Normal breath sounds. Musculoskeletal: Cervical back: Normal range of motion. Skin: General: Skin is warm and dry. Neurological: Mental Status: She is alert and oriented to person, place, and time. Psychiatric: Mood and Affect: Mood normal. ASSESSMENT/PLAN: Melany was seen today for nasal congestion, sinusitis and cough. Diagnoses and all orders for this visit: Acute non-recurrent maxillary sinusitis Change in hearing, bilateral - [facility] [place]; Future Other orders - cefDINIR (OMNICEF) 300 mg capsule; Take 1 capsule (300 mg total) by mouth in the morning and 1 capsule (300 mg total) before bedtime. Do all this for 10 days. Follow-up: Cefdinir 300mg bid for ten days Referral ent- Hearing loss keep routine appointment JEAN Davalos 08/02/24 1425 documented in this encounter [facility] 05-18-2024 History of Present illness Narrative Images from the original note were not included. [address] [facility] [id number] SUBJECTIVE: Patient ID: Melany Andrade is a 43 y.o. female. Patient presents to the office for routine check up. She is following with psychiatry and rheumatology. Is currently getting over a cold. Is working on coping mechanisms for ADHD and is going to talk to her psychiatrist about possible medications. Follow-up Associated symptoms include congestion. Pertinent negatives include no abdominal pain, arthralgias, chest pain, coughing, fatigue, fever, joint swelling, nausea, neck [...] and unexpected weight change. HENT: Positive for congestion. Negative for ear pain, sinus pressure, sinus pain and [...] The patient is not nervous/anxious. PHYSICAL EXAMINATION: Vitals: 05/18/24 0830 BP: 124/72 Pulse: 62 Resp: 18 SpO2: 97% Weight: 93.9 kg (207 lb) Physical Exam Constitutional: Appearance: She is well-developed. [...] is normal. Breath sounds: Normal breath sounds. Musculoskeletal: Cervical back: Normal range of motion. Skin: General: Skin is warm and dry. Neurological: Mental Status: She is alert and oriented to person, place, and time. Psychiatric: Mood and Affect: Mood normal. ASSESSMENT/PLAN: Melany was seen today for follow-up. Diagnoses and all orders for this visit: Fibromyalgia Anxiety Degenerative disc disease, lumbar Attention deficit hyperactivity disorder (ADHD), predominantly inattentive type Generalized anxiety disorder Follow-up: Follow up in six months for wellness or as needed Keep appointments with specialist JEAN Davalos 05/22/24826 documented in this encounter [employer] 04-11-2024 History of Present illness Narrative Images from the original note were not included. [address] [place] [address] SUBJECTIVE: Patient ID: Melany Andrade is a 43 y.o. female. Pt with 5 days of cough and cold symptoms Yellow phlegm and chest congestion The following portions of the patient's history were reviewed and updated as appropriate: allergies, current medications, past family history, past medical history, past social history, past surgical history and problem list. REVIEW OF SYSTEMS: Review of Systems HENT: Positive for congestion. Respiratory: Positive for cough. PHYSICAL EXAMINATION: Vitals: 04/11/24 0829 BP: 126/74 Pulse: 76 Resp: 18 Temp: 36.4 C (97.5 F) SpO2: 97% Weight: 95.3 kg (210 lb) Physical Exam Vitals and nursing note reviewed. Constitutional: Appearance: Normal appearance. HENT: Head: Normocephalic and atraumatic. Nose: Congestion and rhinorrhea present. Cardiovascular: Rate and Rhythm: Normal rate and regular rhythm. Pulses: Normal pulses. Heart sounds: Normal heart sounds. Pulmonary: Breath sounds: Rhonchi present. Skin: General: Skin is warm and dry. Neurological: General: No focal deficit present. Mental Status: She is alert and oriented to person, place, and time. Psychiatric: Mood and Affect: Mood normal. Behavior: Behavior normal. ASSESSMENT/PLAN: Melany was seen today for cough and sinusitis. Diagnoses and all orders for this visit: Acute bronchitis, unspecified organism Other acute sinusitis, recurrence not specified Other orders - cefDINIR (OMNICEF) 300 mg capsule; Take 1 capsule (300 mg total) by mouth in the morning and 1 capsule (300 mg total) before bedtime. Do all this for 10 days. - benzonatate (TESSALON PERLES) 200 mg capsule; Take 1 capsule (200 mg total) by mouth 3 (three) times a day as needed for cough. Follow-up: Tessalon perles and cefdinir documented in this encounter [facility] [employer] 03-02-2024 History of Present illness Narrative Images from the original note were not included. [address] [place] [id number] SUBJECTIVE: Patient ID: Melany Andrade is a 43 y.o. female. Patients presents to the office with complaints of blisters on bottoms of bilateral feet. Patient was walking and her shoes kept sliding and she went barefoot on asphlat. She has now developed three blisters on the bottom of her feet. The following portions of the patient's history [...] pain. Skin: Negative for pallor and rash. Blisters Neurological: Negative for dizziness, weakness, light-headedness and numbness. Psychiatric/Behavioral: Negative for sleep disturbance. The patient is not nervous/anxious. PHYSICAL EXAMINATION: Vitals: 03/02/24 0854 BP: 124/74 Pulse: 88 Resp: 18 Weight: 96.2 kg (212 lb) Physical Exam Constitutional: Appearance: She is well-developed. HENT: Head: Normocephalic and atraumatic. Right Ear: External ear normal. Left Ear: External ear normal. Eyes: Conjunctiva/sclera: Conjunctivae normal. Pupils: Pupils are equal, round, and reactive to light. Cardiovascular: Rate and Rhythm: Normal rate and regular rhythm. Heart sounds: Normal heart sounds. Pulmonary: Effort: Pulmonary effort is normal. Breath sounds: Normal breath sounds. Musculoskeletal: Cervical back: Normal range of motion. Feet: Feet: Right foot: Skin integrity: Blister present. Left foot: Skin integrity: Blister present. Skin: General: Skin is warm and dry. Neurological: Mental Status: She is alert and oriented to person, place, and time. Psychiatric: Mood and Affect: Mood normal. ASSESSMENT/PLAN: Melany was seen today for blister. Diagnoses and all orders for this visit: Blister of foot, unspecified laterality, initial encounter Other orders - silver sulfADIAZINE (SILVADENE, SSD) 1 % cream; Apply 1 Application topically in the morning. Follow-up: Silvadene cream to area Follow up for routine appointment or as needed JEAN Davalos 03/02/24 0913 documented in this encounter [facility] [employer] 12-16-2023 History of Present illness Narrative Images from the original note were not included. [address] [facility] [address] [facility] [address] Date of Service: 02/04/2023 Thank you for the referral to evaluate Melany Andrade for fibromyalgia This is a new patient and is seen at the request of JEAN Davalos. Chief Complaint: Widespread pain SUBJECTIVE: Her symptoms are stable Melany Andrade is a 42 y.o. female who presents today for follow up evaluation of fibromyalgia Her fibromyalgia symptoms are little persistent at this time Robaxin is helping somewhat: no side effects Mobic is helping her without any side effects No new symptoms Visit history from 02/04/2023 Melany Andrade is a 43 y.o. female who [...] sleep disturbances - 3/3 Previous medications/treatment: saw life support technician in [place] Gabapentin- did not work Cymbalta-- 120 mg [...] once daily at bedtime. 30 tablet 5 ztljwubeceyg-voglrnxo-jhwnvk (CENTRUM SILVER) tablet Take 1 tablet by [...] CRP <0.1 08/01/2021 No results found. ASSESSMENT/PLAN: Melany Andrade is a 43 y.o. female patient [...] Visit via Real-time Synchronous Audiovisual Provider Location: [facility] [address] [place] [phone] Patient Location: patient's home Video Visit Consent [...] that there are some limitations compared to yfmb-xu-ffsb evaluations. The patient consented to the presence [...] or corrected. Thank you for your understanding. [facility] Esmer Rich PA-C [address] [place] [address] Office [phone] RM Malone 12/16/23 0854 documented in this encounter [facility] [facility] 10-28-2023 History of Present illness Narrative Images from the original note were not included. [address] [facility] [id number] Subjective: Melany Andrade is a 43 y.o. female who [...] Psychiatric: Mood and Affect: Mood normal. Assessment/Plan: Melany was seen today for annual exam. Diagnoses [...] once daily at bedtime. 30 tablet 5 dsyzbjziwrot-vsfzgzlv-eszvqn (CENTRUM SILVER) tablet Take 1 tablet by [...] Davalos 10/28/23 1127 documented in this encounter [facility] 10-03-2023 History of Present illness Narrative Images from the original note were not included. [address] [facility] [phone] SUBJECTIVE: Patient ID: Melany Andrade is a 43 y.o. female. Video Visit via Real-time Synchronous Audiovisual Provider Location: [facility] [address] [facility] [phone] Patient Location: Patient's home Video Visit [...] that there are some limitations compared to ifvd-zc-nhuj evaluations. The patient consented to the presence of additional virtual and/or in-person participants. We elected to proceed.Video Visit via Real-time Synchronous Audiovisual Provider Location: [facility] [address] [place] [id number] Patient Location: Patient's home Video Visit [...] that there are some limitations compared to aopm-wx-bewq evaluations. The patient consented to the presence [...] following intervention(s) were applied: encouragement to exercise. JAEN Davalos 10/03/23 1305 documented in this encounter [facility] Evaluation note Diagnosis Onset Date Sore throat acute Left otitis media noneactive [facility] Work Phone: Evaluation note* Diagnosis Acute non-recurrent maxillary sinusitis- Primary documented [facility]* Diagnosis Blister of foot, unspecified laterality, initial encounter- Primary documented [facility]* Diagnosis Wellness examination- Primary Fibromyalgia Unspecified myalgia and myositis Degenerative disc disease, lumbar Anxiety Anxiety state, unspecified documented [facility] this [facility]* Diagnosis Acute bronchitis, unspecified organism- Primary Other acute sinusitis, recurrence not specified documented [facility] this [facility]* Diagnosis Fibromyalgia Unspecified myalgia and myositis documented in [facility]* Diagnosis Generalized anxiety disorder documented in this [facility]* Diagnosis Fibromyalgia- Primary Unspecified myalgia and myositis Anxiety Anxiety state, unspecified Degenerative disc disease, lumbar Attention deficit hyperactivity disorder (ADHD), predominantly inattentive type Generalized anxiety disorder documented [facility]* Diagnosis Acute non-recurrent maxillary sinusitis- Primary Change in hearing, bilateral [facility] Diagnosis Acute bronchitis, unspecified organism- Primary documented [facility]* Diagnosis Wellness examination- Primary Seasonal allergies Allergic rhinitis, cause unspecified Anxiety Anxiety state, unspecified Degeneration of intervertebral disc of lumbar region, unspecified whether pain present Fibromyalgia Unspecified myalgia and myositis Generalized anxiety disorder Attention deficit hyperactivity disorder (ADHD), predominantly inattentive type Facial injury, initial encounter Raynaud's disease without gangrene documented [facility] this encounter [facility]* Diagnosis Raynaud's disease without gangrene documented [facility]* Diagnosis Insomnia due to other mental disorder documented [facility] this encounter [facility]* Diagnosis Acute non-recurrent maxillary sinusitis- Primary Acute bronchitis, unspecified organism documented in this encounter [facility] SystemInstructionsNot on filedocumented in this encounter [facility]* Attachments The following attachments cannot be sent through Care Everywhere. * Sinusitis in adults (Turkmen) [facility] Attachments The following attachments cannot be sent through Care Everywhere. * Blisters (Turkmen) [facility]* Attachments The following attachments cannot be sent through Care Everywhere. * Yearly Physical for Adults (Turkmen) [facility]* Attachments The following attachments cannot be sent through Care Everywhere. * Bronchitis, Adult ED (Turkmen) documented in [facility] encounter[facility] SystemInstructionsNot on file documented in this encounterOhio[facility] SystemInstructionsNot on file documented in this encounterOhio[facility]* Attachments The following attachments cannot be sent through Care Everywhere. * Fibromyalgia (Turk[place]) [facility]* Attachments The following attachments cannot be sent through Care Everywhere. * Sinusitis in adults (Turkmen) [facility]* Attachments The following attachments cannot be sent through Care Everywhere. * Acute bronchitis in adults (Turkmen) [facility]ructionsNot on file documented in this encounter[facility]* Attachments The following attachments cannot be sent through Care Everywhere. * Degenerative disc disease (Turkmen) [facility] SystemInstructionsNot on file documented in this encounterOhio[facility]* Attachments The following attachments cannot be sent through Care Everywhere. * Raynaud phenomenon (Turkmen) [facility] SystemInstructionsNot on file documented in this encounterOhio[facility] SystemInstructionsNot on file documented in this [facility]Pro[facility] SystemInstructions* Attachments The following attachments cannot be sent through Care Everywhere. * Acute bronchitis in adults (Turkmen) [facility] Summary Purpose Family History No Family History Records FoundNo Family History Records FoundNo Family History Records FoundNo Family History Records FoundNo Family History Records FoundNo Family History Records Found Advance Directives Advance Directive Response Recorded Date/ Time Advance Directives No December 16 024 9:04am Chief Complaint and Reason for Visit Chief Complaint Sore throat Reason for Visit Sore throat Left otitis media Additional Source Comments INFORMATION SOURCE (unrecogn ized section and content) DATE CREATED AUTHOR 03/31/2018 [facility] DATE CREATED AUTHOR AUTHOR'S ORGANIZ ATION 01/13/2022 [facility] DATE CREATED AUTHOR AUTHOR'S ORGANIZ ATION 04/04/2024 [facility] EPIC DATE CREATED AUTHOR AUTHOR'S ORGANIZ ATION 10/10/2024 [facility] DATE CREATED AUTHOR AUTHOR'S ORGANIZ ATION 12/23/2024 [facility] DATE CREATED AUTHOR AUTHOR'S ORGANIZ ATION 02/20/2025 [facility] Care Teams (unrecognized sec tion and content) Team Status: Active Member Role Status Dates MARK ANTHONY Davalos Primary Care Provider Active Team Status: Inactive Member Role Status Dates MARK ANTHONY Chacko Attending Provider Active S tart: December 17, 2023 End: December 17, 2023 MARK ANTHONY Davalos Primary Care Provider Active Start: December 17, 2023 End: December 17, 2023 Chain Repairer Relationship Specialty Start Date End Date Emir Duggan APRN-ZACHARIAH [address] [place] [address] PCP - General Family Medicine 08/06/20 Chain Repairer Relationship Specialty Start Date End Date Emir [facility] [address] [place] [address] PCP - General Family Medicine 08/06/20 Chain Repairer Relationship Specialty Start Date End Date Emir Duggan [facility] [address] [place] [address] PCP - General Family Medicine 08/06/20 Chain Repairer Relationship Specialty Start Date End Date Emir Duggan [facility] [address] [place] [address] PCP - General Family Medicine 08/06/20 Chain Repairer Relationship Specialty Start Date End Date Emir Duggan [facility] [address] [place] [address] PCP - General Family Medicine 08/06/20 Chain Repairer Relationship Specialty Start Date End Date Emir Duggan [facility] [address] [place] [address] PCP - General Family Medicine 08/06/20 Chain Repairer Relationship Specialty Start Date End Date Emir Duggan [facility] [address] [place] [address] PCP - General Family Medicine 08/06/20 Chain Repairer Relationship Specialty Start Date End Date Emir Duggan [facility] [address] [place] [address] PCP - General Family Medicine 08/06/20 Chain Repairer Relationship Specialty Start Date End Date Emir Duggan APRN-ONLINE MARKETING COORDINATOR [address] [place] [address] PCP - General Family Medicine 08/06/20 Chain Repairer Relationship Specialty Start Date End Date Emir Duggan APRN-ONLINE MARKETING COORDINATOR [address] [place] [address] PCP - General Family Medicine 08/06/20 Chain Repairer Relationship Specialty Start Date End Date WesEmir oliver APRN-ONLINE MARKETING COORDINATOR [address] [place] [address] PCP - General Family Medicine 08/06/20 Chain Repairer Relationship Specialty Start Date End Date Emir Duggan APRN-ONLINE MARKETING COORDINATOR [address] [place] [address] PCP - General Family Medicine 08/06/20 Goals (unrecognized section and content) Goals may be documented in a n alternate sectionNot on filedocumented as of this encounterNot on filedocumented as of this encounterNot on filedocumented as of this encounterNot on filedocumented as of this encounterNot on filedocumented as of this encounterNot on filedocumented as of this encounterNot on filedocumented as of this encounterNot on filedocumented as of this encounterNot on filedocumented as of this encounterNot on filedocumented as of this encounterNot on filedocumented as of this encounterNot on filedocumented as of this encounterNot on filedocumented as of this encounterNot on filedocumented as of this encounterNot on filedocumented as of this encounterNot on filedocumented as of this encounterNot on filedocumented as of this encounterNot on filedocumented as of this encounter Reason for Visit (unrecogniz ed section and content) Reason Comments Blister Reason Comments Annual Exam Reason Comments Cough Sinusitis Reason Comments Follow-up Reason Comments Nasal Congestion Sinusitis Cough Reason Comments Sinusitis Reason Comments Annual Exam Reason Comments Follow-up Circulatory Problem New patient- c/o sarabia ds and feet being cold and discolored at times Specialty Diagnoses / Procedures Referred By Stacey t Referred To Contact Vascular Surgery Diagnoses Raynaud's disease without gangrene Emir Duggan, EFFICIENCY ANALYST-ONLINE MARKETING COORDINATOR [address] [place] [address] Phone: tel: fax: Lakisha Ackerman MD [address] [place] [address] Phone: tel:[phone] fax: Referral ID Status Reason Start Date Expiration Date V isits Requested Visits Authorized [id number] Closed Specialty Services Required 11/23/2024 11/23/2025 1 1 Reason Comments Cough Nasal Congestion FOR RECORDS PERTAINING TO PATIENTS WHO ARE [...] BE BASED ON THE PRIMARY CLINICAL RECORDS. [employer] provides no warranty or guarantee of the accuracy or completeness of information in this document.
== END 2025-04-01 22:01 | disposition home or self-care (01) ==
LOC: LAB 22:00
PROVIDERS: Visit Provider Obstetrics & Gynecology
DX: Z01.419 Encounter for gynecological examination (general) (routine) without abnormal findings (principal)
CPT/HCPCS: 88175

== ENCOUNTER 2025-04-26 12:45 | Outpatient (OUT) | payer OTHER, BC, SELFPAY ==
--- NOTE | 2025-04-26 12:53 | MM_ITS ---
Patient Name: KAMERON ANDRADE MR#: [id number] : 1980 Exam Date: 04/26/2025 Ordering Doctor: DR TROREY WALL . RADIOLOGY REPORT PROCEDURE: MM TOMOSYNTHESIS SCREENING BI COMPARISON: MM TOMOSYNTHESIS SCREENING BI, 03/11/2023. MG MAMM NICKIE DIAG W CAD, 11/20/2019. MG MAMM NICKIE DIAG W CAD, 11/16/2018. INDICATIONS: Screening mammogram Calculator Name NCI Breast Cancer Risk Assessment Tool 5 Year Breast Cancer Risk 0.60% Lifetime Breast Cancer Risk 8.90% Personal Breast Cancer No Personal Ovarian Cancer No Treatments None Family Cancers None LOCATION: [facility] BREAST COMPOSITION: The breasts are heterogeneously dense, which may obscure small masses. FINDINGS: DIAGNOSTIC CATEGORY 1--NEGATIVE. RIGHT BREAST: No significant suspicious finding. LEFT BREAST: No significant suspicious finding. RECOMMENDATIONS: ROUTINE MAMMOGRAM AND CLINICAL EVALUATION IN 12 MONTHS. PLEASE NOTE: A NORMAL MAMMOGRAM DOES NOT EXCLUDE THE POSSIBILITY OF BREAST CANCER. A CLINICALLY SUSPICIOUS PALPABLE LUMP SHOULD BE BIOPSIED. Dictated by: Jericho Spring DO on 04/26/2025 at 15:21 Approved by: Jericho Spring DO on 04/26/2025 at 15:22
[2025-04-26 14:07] LABS: Free T3 2.50 pg/mL (2.18-3.98); Glucose 55 mg/dL (74-106); Thyroid Stimulating Hormone 1.160 uIU/mL (0.358-3.740)
[2025-04-26 14:22] LABS: Ferritin 58.0 ng/mL (8.0-252.0)
[2025-04-27 04:07] LABS: Sex Horm Binding Glob, Serum 73.9 nmol/L (24.6-122.0)
[2025-04-27 13:10] LABS: Rapid Plasma Reagin, Quant Non Reactive titer (NonRea<1:1)
[2025-04-30 12:08] LABS: Serotonin, Serum 9 ng/mL (31-207)
[2025-04-30 13:08] LABS: Reverse T3, Serum 18.6 ng/dL (9.2-24.1)
== END 2025-04-26 12:46 | disposition home or self-care (01) ==
LOC: MAMMO 12:45
PROVIDERS: PCP Nurse Practitioner Family; Visit Provider Obstetrics & Gynecology
DX: Z12.31 Encounter for screening mammogram for malignant neoplasm of breast (principal); E34.9 Endocrine disorder, unspecified; Z20.2 Contact with and (suspected) exposure to infections with a predominantly sexual mode of transmission
CPT/HCPCS: 36415; 77063; 77067; 82306; 82530; 82627; 82670; 82679; 82728; 82947; 83036; 83525; 84144; 84260; 84270; 84402; 84403; 84432; 84436; 84439; 84443; 84481; 84482; 84681; 86376; 86592; 86800; 87340; 87389